=== PATIENT | female | born 1975 | race Caucasian/White ===

== ENCOUNTER → 2016-11-02 | Outpatient (CLI) | payer MEDICAID ==
[~2016-11-02] MED LIST: APAP/HYDROCODON1 TA9 PO; PERCOCET1 TAB PO
[2016-11-04 04:38] LABS: HIV Screen 4th Generation wRfx Non Reactive (Non Reactive)
== END ==
LOC: LAB 10:05
PROVIDERS: Nurse Practitioner Obstetrics & Gynecology
DX: Z34.80 Encounter for supervision of other normal pregnancy, unspecified trimester (principal)
CPT/HCPCS: G0432

== ENCOUNTER 2017-08-08 10:35 | Emergency (ER) | payer MEDICAID ==
[~2017-08-08] VITALS: Ht 165.1 cm; Wt 80.7 kg
[2017-08-08 10:55] LABS: URINE BILIRUBIN - DIPSTICK NEGATIVE (NEG); URINE BLOOD TRACE (NEG); UTC URINE PREGNANCY POSITIVE (NEG)
[2017-08-08 11:13] VITALS: BP 129/81
[2017-08-08] MEDS ORDERED: MACROBID 100MG100 M1 PO (11:13)
--- NOTE | 2017-08-08 11:13 | [facility] Report ---
History of Present Issue Date/Time Seen by Provider 08/08/17 1050 Visit Reason Pt arrived:Walked Presenting Problem:PT C/O LOWER BACK PAIN AND IS CONCERNED SHE HAS A UTI. PT REPORTS PAIN X2 WEEKS Location if Accident: Onset of symptoms date/time:/ or onset unknown for:MEDICAL HX UNKNOWN Have you (or family members/close friends) recently traveled outside the [place]? N If Yes, where/when: Have you had exposure to infectious disease within the past month? TB? Other? Specify: Patient presents with c/o low back pain for approximately 2 weeks and dysuria that started 1-2 days ago. Patient states that she had a positive home test yesterday. Denies fever/chills. Hx includes previous UTIs and a miscarriage 12/2016. Patient states she has been trying to conceive and is excited about the . Denies taking medication for symptoms. Patient states LMP was last month. Has not scheduled an appointment with [facility] [employer]EC[employer] due to office being closed. Source patient Exam Limitations no limitations ALLERGIES Coded Allergies: Penicillins (SEVERE RASH 11/07/16) tetanus and diphtheria toxoids (SWELLING/RASH 11/07/16) Home Medications Active Scripts OXYCODONE HCL/ACETAMINOPHEN (Percocet 5-325 MG Tablet) 1 TAB PO Q6HP PRN pain #10 TAB Prov: 11/10/16 Reported Medications HYDROCODONE/ACETAMINOPHEN (Hydrocodon-Acetaminoph 7.5-325) 1 TAB PO PRN PRN POST OP PAIN #20 History Medical History General CAD? No Angina: No OK: No Hypertension? No Hyperlipidemia? No CHF? No DVT? No PE? No COPD? No Asthma? No Anemia? No GERD? No Gastric ulcers? No GI Bleed? No Hernia? No Thyroid Problems? No Hypothyroidism? No CVA? No Seizures? No Diabetes? No Renal Insuffiency? No UTI? Yes Stones? No BPH? No GB Disease: Yes Nephritic Syndrome? No Asplenia? No Hepatitis? No Sickle Cell Disease? No Arthritis? No Migraines? No Cataracts? No Glaucoma? No MRSA? No HIV? No TB? No Anxiety? No Depression? No Cancer? No More? No Immunization HX DT/Tetanus 1-4 Years Ago Flu Refused Pneumonia Never Had Surgical Hx Previous Surgery?Y GALLBLADDER LEEP D & C Family History Family HX Diabetes No CAD Yes Hypertension Yes Hyperlipidemia Yes Cancer Yes TB No Social History Smoking Hx Smoker: Never Smoker Tobacco: No Alcohol Alcohol: No Review of Systems All Other Systems Reviewed and Negative Constitutional denies chills, denies fever, denies malaise Respiratory denies cough, denies shortness of breath, denies wheezing Cardiovascular denies chest pain, denies edema, denies palpitations Gastrointestinal denies abdominal pain, denies diarrhea, denies nausea, denies vomiting, other ( bladder fullness and bloating) Genitourinary dysuria, hesitancy, . denies: discharge, abnormal vaginal bleeding, hematuria. Musculoskeletal back pain (low back) Psychiatric/Neurological denies no symptoms reported Physical Exam Vital Signs Vital Signs Date Time Temp Pulse Resp B/P Pulse O2 O2 Flow FiO2 Ox Delivery Rate 08/08 1113 98.9 81 20 129/81 99 08/08 1046 98.9 81 20 129/81 99 General Appearance normal appearance, WD/WN, no apparent distress Respiratory Status Yes: chest symmetrical. No: respiratory distress. Lung Sounds bilateral: normal breath sounds. Cardiovascular normal exam, regular rate/rhythm, no peripheral edema, no murmur Gastrointestinal normal bowel sounds, soft, tenderness (suprapubic) Back normal inspection, no CVA tenderness, bowel/bladder continent, gait normal, low back slightly TTP with deep palpation Neurologic alert, normal exam, no motor/sensory deficits, oriented x 3 Mental status normal mood/affect Skin intact, normal color, warm/dry Medical Decision Making LABS/Meds/Orders Pt receiving controlled substance in ED? No Results/Orders Laboratory Tests 08/08/17 1048: Urine Color YELLOW, Urine Appearance CLEAR, Urine pH 6.0, Ur Specific [place] 1.015, Urine Protein NEGATIVE, Urine Ketones NEGATIVE, Urine Blood TRACE H, Urine Nitrate NEGATIVE, Urine Bilirubin NEGATIVE, Urine Urobilinogen 0.2, Ur Leukocyte Esterase NEGATIVE, Urine Glucose NEGATIVE, Urine Test POSITIVE Orders Procedure Date/time Status CULTURE, URINE 08/08 1058 Active [facility] URINE 08/08 1048 Complete [facility] URINE DIPSTICK 08/08 1048 Complete Departure Departure Time of Disposition 1101 Disposition DC Home or Self Care(routine) Clinical Impression Primary Impression: Dysuria in Qualifiers: Trimester: first trimester Qualified Code: O26.891 - Other specified related conditions, first trimester Condition STABLE Referrals James VAZQUEZ,Constantine Lang Patient Instructions DI for Dysuria -- Adult, DI for -- Discomforts and Remedies Additional Instructions Instucted patient regarding health including taking a vitamin , frequest rest periods, adequate nutrition and fluid intake. Patient has been advised to contact Dr. Bond's office today to schedule an appointment for and follow-up from visit today. Monitor signs and symptoms; if you become unable to urinate, begin to have vaginal discharge including spotting and bleeding report to ER for further evaluation. Urinc culture was collected and sent to the lab; you may anticipate results after approximately 72 hours. Patient verbalizes understanding. Discharge Counseling Counseled pt/family regarding diagnosis, test results, medications/RX, home care, follow up needs Prescriptions Current Visit Scripts Nitrofurantoin 100 MG PO BID #14 CAP take 1 capsule twice daily for 7 days at 6128
--- OUTSIDE RECORDS SUMMARY | 2017-08-09 19:19 | External Medical Summary Rpt | CCD ---
Author Author , PAYTON Organization PAYTON Address Unknown Phone [email or web address] Care Team Providers Care Insole Tacker Name Role Phone MELY HICKS Unavailable Unavailable ZACHERY MELY ZACHERY, MELY Unavailable Unavailable ZACHERY JESUS LEE Unavailable Unavailable SARAI TER, SARAI TER Unavailable Unavailable CASTELLANOS, CASTELLANOS Unavailable Unavailable CASTELLANOS TRINA, CASTELLANOS Unavailable Unavailable [facility] Unavailable Unavailable [facility] [place], [facility] THE BLUE FEEBACK, FEEBACK Unavailable Unavailable ANTON ALBERT, ANTON ALBERT Unavailable Unavailable [facility] Unavailable Unavailable [place], [facility] Unavailable Unavailable CENTER, [facility] Unavailable Unavailable INC, [facility] Unavailable Unavailable [facility], Unavailable Unavailable [facility] Unavailable Unavailable IMAGING [facility], [facility] MAI ZACHERY, MAI Unavailable Unavailable ZACHERY [facility] GRE, Unavailable Unavailable [facility], Unavailable Unavailable [facility] Unavailable [facility] Unavailable Unavailable [facility], Unavailable Unavailable PLL[facility], [facility] Unavailable Unavailable LAB, [facility] Unavailable Unavailable LAB, [facility] TEX DAN, Unavailable Unavailable TEX NICE JR JUMA, Unavailable Unavailable PICKPAULA DAN JUMA PICKPAULA DAN JUMA, Unavailable Unavailable PICKMIKEYIMER JUMA [facility] Un[facility] Un[facility], [facility] RENUSCH, RENUSCH Unavailable Unavailable [facility] # Unavailable Unavailable [id number], [facility] # [id number] [facility] Unavailable Unavailable DEPT [facility], [facility] Unavailable Unavailable OF [facility], [facility] [place] Purpose Continuity of Care Document - 12-14-2010 through 2016 Problems Code Diagnosis DOS Provider Status [id number] 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 RTN W/O ABNORMAL FIND M542 CERVICALGIA 11-10-2016 [facility] N939 ABNORMAL 11-10-2016 [facility] VAGINAL [facility] BLEEDING UNSPECIFIED R1030 LOWER 11-10-2016 [facility] PAIN PLLC UNSPECIFIED R938 ABNORMAL 11-10-2016 JESSICA FIND ON DX MEDICAL IMAGING OT IMAGING ASS SPEC BODY STRCT O021 MISSED 11-07-2016 [facility] O034 INCOMPLETE 11-07-2016 [facility] SPONTANEOUS ANESTH OF THE BLUE W/O COMPLICATIO N Z3480 ENC 11-02-2016 [facility]PER[facility]ION [facility] OT NORMAL INC PREG UNS TRIMESTER Z3201 ENCOUNTER 10-30-2016 [facility] FOR PHYSICIANS GROUP TEST RESULT POSITIVE J00 ACUTE 10-24-2016 [facility] NASOPHARYNG PHYSICIAN ITIS COMMON GROUP COLD Z3189 ENCOUNTER 10-10-2016 PUBLIC FOR OTHER HEALTH PROCREATIVE DHS/[facility] MANAGEMENT HEALTH [id number] CERV LOW 09-30-2016 [facility] RISK HUMAN PHYSICIANS PAPILLOMAVI GROUP JOE DNA TEST POS Z9189 OTHER 09-30-2016 [facility] SPECIFIED LLC PERSONAL RISK FACTORS NEC N760 ACUTE 11-28-2015 [facility] VAGINITIS PHYSICIANS GROUP Z7251 HIGH RISK 11-28-2015 [facility] HETEROSEXUA PHYSICIANS L BEHAVIOR GROUP Z729 PROBLEM 11-28-2015 [facility] RELATED TO [facility] LIFESTYLE INC UNSPECIFIED Q96203 ATYP SQ 08-29-2015 [facility] CELLS UNDET PHYSICIANS GROUP SIGNIFICANC E CYTOL SMER CERV V2509 OT GENERAL 03-30-2015 [facility] PHYSICIANS CNSL&ADVICE GROUP CONTRACEPT MANAGEMENT V692 PROBLEMS 03-30-2015 [facility] RELATED TO PHYSICIANS HIGH-RISK GROUP SEXUAL BEHAVIOR 15035 PAP SMER 03-02-2015 [facility] CERV W/LW LLC GRADE SQUAMOUS INTRAEPITH LES 6253 DYSMENORRHE 12-16-2014 [facility] A [facility] 26581 OTHER 12-16-2014 [facility] FATIGUE INC 54424 PAP SMER 08-18-2014 [facility] CERV [facility] W/ATYPICAL CLINIC OF SQUAMOUS [place] CELLS UNDET 41928 OTH 08-18-2014 [facility] ABNORMAL HEALTH [facility] OF U SMEAR [place] CERVIX&CERV HPV V7231 ROUTINE 08-18-2014 [facility] GYNECOLOGIC LLC AL EXAMINATION 1105 DERMATOPHYT 12-10-2013 MELY BINGHAM OSIS OF THE BODY 3829 UNSPECIFIED 12-10-2013 MELY B[facility] OTITIS MEDIA 60495 UNS 11-02-2013 MELY BINGHAM GASTRITIS&G ASTRODUODIT IS W/O MENTION HEMORR 0794 HUMAN 09-06-2013 PATHOLOGY & PAPILLOMA CYTOLOGY VIRUS IN LAB CCE & UNS SITE 28108 MODERATE 09-06-2013 [facility] DYSPLASIA HEALTH OF [facility] [place] 1121 CANDIDIASIS 08-17-2013 PATHOLOGY & OF VULVA CYTOLOGY AND VAGINA LAB 6160 CERVICITIS 08-17-2013 PATHOLOGY & AND CYTOLOGY ENDOCERVICI LAB TIS V2549 SURVEILLANC 03-16-2013 [facility] E OTH PREV HEALTH PRSC CLINIC OF CONTRACEPT [place] METHOD 34828 MILD 02-03-2013 PATHOLOGY & DYSPLASIA CYTOLOGY OF CERVIX LAB 31822 CERV HIGH 12-29-2012 PATHOLOGY & RISK HUMAN CYTOLOGY PAPILLOMAVI LAB JOE DNA TEST POS V2689 OTHER 07-31-2012 [facility] HE[facility] PROCRE[facility]IVE CENTER MANAGEMENT 96027 OTHER 06-11-2012 [facility] V[facility]UAL GRE DISTORTIONS AND ENTOPTIC PHENOMENA 2662 OTHER 05-18-2012 [facility] B-COMPLEX HEALTH DEFICIENCIE CENTER S 70753 TRICHOMONAL 12-03-2011 [facility] VULVOVAGINI CENTER TIS V1589 OTH SPEC 10-15-2011 P[facility] PERS HX JR JUMA PRESENTING [facility] OTH V069 NEED PROPH 05-13-2011 [facility] VACCINATION HEALTH W/UNSPEC CENTER COMB VACCINE Medications Na ND Rx Da Fi Fi Am Da Di Ph RX Ph St me C No te ll ll ou ys ag ar # ys at rm s nt no ma ic us Or Da si cy ia de te s n re d OX 00 01 02 10 3 00 WA Ac YC 40 -1 -1 .0 00 L- ti OD 60 6- 7- 00 02 MA ve ON 51 20 20 23 RT E- 20 17 17 87 AC 1 00 PH ET AR AM MA IN CY OP HE #5 N 91 5- 32 5 HY 13 01 02 [address] 10 -1 -0 .0 00 IN ti OC 70 2- 3- 00 00 IC ve OD 02 20 20 41 ON 00 17 17 88 PH -A 5 96 AR CE MA TA CY MT NO PH 7. 5- 32 5 00 08 08 0 15 3 WA 44 RU Ac 40 -1 -1 .0 L- 95 SH ti 60 0- 0- 00 MA 51 ve 35 20 20 RT 1 NE 70 11 11 IL 5 PH C AR MA CY # 10 05 91 00 05 05 0 12 3 WA 44 RU Ac 40 -0 -0 .0 L- 93 SH ti 60 6- 6- 00 MA 54 ve 35 20 20 RT 0 NE 70 11 11 IL 5 PH C AR MA CY # 10 05 91 CE 68 05 05 0 40 10 WA 71 RU Ac PH 18 -0 -0 .0 L- 17 SH ti AL 00 3- 3- 00 MA 70 ve EX 12 20 20 RT 3 NE IN 10 11 11 IL 1 PH C 25 AR 0 MA MG CY # CA PS 10 UL 05 E 91 Results Labs Lab Lab Date Result Refere Interp Status Commen Order Detail nces retati t Range on CHLAMYDIA AND GONORRHEA TESTING (12-29-2012 14:00) Chlamyd NEGATIV complet ia 013 E ed trachom 14:00 atis rRNA [Presen ce] in Unspeci fied specime n by Probe & target amplifi cation method Neisser NEGATIV complet ia 013 E ed gonorrh 14:00 oeae rRNA [Presen ce] in Unspeci fied specime n by Probe & target amplifi cation method CHLAMYDIA AND GONORRHEA TESTING (12-29-2012 14:00) COLLECT NA complet OR 013 ed 14:00 ETHNICI WHITE, complet TY 013 NON-HIS ed 14:00 PANIC KIT 06-26-13 complet EXPIRAT 013 ed ION 14:00 DATE SYMPTOM NO complet S 013 ed 14:00 REASON REVISIT complet FOR 013 /ANNUAL ed REQUEST 14:00 FAMILY PLANNIN G VISIT SPECIME URINE complet N 013 ed SOURCE 14:00 PREGNAN NO complet T 013 ed 14:00 CHART NA complet NUMBER 013 ed 14:00 Chlamyd Pending complet ia 013 ed trachom 14:00 atis rRNA [Presen ce] in Unspeci fied specime n by Probe & target amplifi cation method Neisser Pending complet ia 013 ed gonorrh 14:00 oeae rRNA [Presen ce] in Unspeci fied specime n by Probe & target amplifi cation method CHLAMYDIA AND GONORRHEA TESTING (10-15-2011 14:34) Chlamyd NEGATIV complet ia 011 E ed trachom 14:34 atis rRNA [Presen ce] in Unspeci fied specime n by Probe & target amplifi cation method Neisser NEGATIV complet ia 011 E ed gonorrh 14:34 oeae rRNA [Presen ce] in Unspeci fied specime n by Probe & target amplifi cation method CHLAMYDIA AND GONORRHEA TESTING (10-15-2011 14:34) COLLECT NA complet OR 011 ed 14:34 ETHNICI WHITE, complet TY 011 NON-HIS ed 14:34 PANIC KIT complet EXPIRAT 011 2 ed ION 14:34 DATE SYMPTOM NO complet S 011 ed 14:34 REASON REVISIT complet FOR 011 /ANNUAL ed REQUEST 14:34 FAMILY PLANNIN G VISIT SPECIME FEMALE complet N 011 ENDOCER ed SOURCE 14:34 VICAL PREGNAN NO complet T 011 ed 14:34 CHART NA complet NUMBER 011 ed 14:34 Chlamyd Pending complet ia 011 ed trachom 14:34 atis rRNA [Presen ce] in Unspeci fied specime n by Probe & target amplifi cation method Neisser Pending complet ia 011 ed gonorrh 14:34 oeae rRNA [Presen ce] in Unspeci fied specime n by Probe & target amplifi cation method Procedures Procedure DOS Code Location Performer Comment CYTP C/V 62936 [facility] PICKLESIM AUTO THIN 7 LLC ER [place] S[place] [address] [facility] TRANSVAGI 7 [facility] NAL INC INC COMPREHEN 59992 [facility] SIVE 7 [facility] METABOLIC INC INC PANEL THERAPEUT 75607 [facility] IC 7 [facility] INJECTION INC INC IV PUSH EACH NEW DRUG THER 21818 [facility] PROPH/DX 7 [facility] NJX IV INC INC PUSH SINGLE/1S T SBST/DRUG URNLS DIP 48195 [facility] STICK/TAB INC INC LET REAGENT AUTO MICROSCOP Y BLOOD 34864 [facility] COUNT 7 [facility] COMPLETE INC INC AUTO&AUTO DIFRNTL WBC TX MISSED 07981 [facility] CASTELLANOS 7 PHYSICIAN FIRST S GROUP TRIMESTER SURGICAL BASIC 67605 [facility] METABOLIC 7 [facility] PANEL INC INC CALCIUM TOTAL ANESTHESI 18349 [facility] FEEBACK A 7 ANESTH INCOMPLET OF THE E/MISSED BLUE US PREG 01199 [facility] CASTELLANOS UTERUS 7 PHYSICIAN REAL TIME S GROUP F/U TRNSABDL PER FETUS COLLECTIO 34685 [facility] N VENOUS 7 [facility] BLOOD INC INC VENIPUNCT URE INF AGT G0432 [facility] AB DETECT 7 [facility] EIA TECH INC INC HIV-1&/HI V-2 SCR OBSTETRIC 76725 [facility] PANEL 7 [facility] INC INC DRUG TEST 42345 [facility] PRSMV 7 PHYSICIAN QUAL DIR S GROUP OPTICAL OBS PER DAY COLLECTIO 99390 [facility] N VENOUS 7 [facility] BLOOD INC INC VENIPUNCT URE URINE 21206 [facility] CASTELLANOS 7 PHYSICIAN TEST S GROUP VISUAL COLOR CMPRSN METHS URINE 51225 [facility] TEST DHS/CO TH DEPT VISUAL HEALTH JERAD COLOR CMPRSN METHS COLPOSCOP 09770 [facility] CASTELLANOS Y CERVIX 6 PHYSICIAN ENDOCERVI S GROUP ARLINE CURETTAGE CYTP C/V 47076 [facility] PICKLESIM AUTO THIN 6 LLC ER JR JUMA LYR PREPJ SCR MNL RESCR PHYS CYTP C/V 62731 [facility], P[facility]IM AUTO THIN 6 LLC ER JR JUMA LYR PREPJ SCR MNL RESCR PHYS COLPOSCOP 20609 [facility] CASTELLANOS Y CERVIX 6 PHYSICIAN TRINA ENDOCERVI S GROUP ARLINE CURETTAGE SMR PRIM 73990 [facility] CASTELLANOS SRC WET 6 PHYSICIAN TRINA MOUNT S GROUP NFCT AGT IADNA 41391 [facility] CHLAMYDIA 6 [facility] INC INC TRACHOMAT IS AMPLIFIED PROBE TQ IADNA 66127 [facility] NEISSERIA 6 [facility] INC INC GONORRHOE AE AMPLIFIED PROBE TQ CYTP C/V 02788 [facility], [facility] AUTO THIN 5 LLC ER JR JUMA LYR PREPJ SCR MNL RESCR PHYS COLPOSCOP 06639 [facility] CA[facility]OS Y CERVIX 5 PHYSICIAN ENDOCERVI S GROUP ARLINE CURETTAGE IADNA 19503 [facility] CHLAMYDIA 5 [facility] INC INC TRACHOMAT IS AMPLIFIED PROBE TQ URINE 52137 [facility] CASTELLANOS 5 PHYSICIAN TEST S GROUP VISUAL COLOR CMPRSN METHS IADNA 89981 [facility] NEISSERIA 5 [facility] INC INC GONORRHOE AE AMPLIFIED PROBE TQ COLLECTIO 04964 [facility] N VENOUS 5 [facility] BLOOD INC INC VENIPUNCT URE ANTIBODY 96473 [facility] HERPES 5 [facility] SMPLX INC INC TYPE 1 ANTIBODY 21051 [facility] VIRUS NOT 5 [facility] INC INC ELSEWHERE SPECIFIFE D INF AGT G0432 [facility] AB DETECT 5 [facility] EIA TECH INC INC HIV-1&/HI V-2 SCR CYTP C/V 51380 [facility], [facility] AUTO THIN 5 LLC LLC LYR PREPJ SCR MNL RESCR PHYS COMPREHEN 92491 [facility] SIVE 5 [facility] METABOLIC INC INC PANEL COLLECTIO 25221 [facility] N VENOUS 5 [facility] BLOOD INC INC VENIPUNCT URE GONADOTRO 82913 [facility] PIN 5 [facility] CHORIONIC INC INC QUALITATI VE BLOOD 05762 [facility] COUNT 5 [facility] COMPLETE INC INC AUTO&[place] [address] [facility] THYROID 5 [facility] STIMULATI INC INC NG HORMONE TSH 25 86342 [facility] HYDROXY 5 [facility] INCLUDES INC INC FRACTIONS IF PERFORMED CYANOCOBA 98023 [facility] JUSTIN 5 [facility] VITAMIN INC INC B-12 GONADOTRO 75897 [facility] PIN 5 [facility] LUTEINIZI INC INC NG HORMONE GONADOTRO 57282 [facility] PIN 5 [facility] FOLLICLE INC INC STIMULATI NG HORMONE COLPOSCOP 24819 [facility] Y CERVIX 4 HEALTH [facility] ENDOCERVI [facility] OF [place] [place] CURETTAGE CYTP C/V 74085 [facility], [facility], AUTO THIN 4 LLC LLC LYR PREPJ SCR MNL RESCR PHYS CYTP 84684 [facility], MAI CERVICAL/ 4 LLC ZACHERY VAGINAL REQ INTERP PHYSICIAN CYTP C/V 72240 [facility], MAI AUTO THIN 4 LLC ZACHERY LYR PREPJ SCR MNL RESCR PHYS COLPOSCOP 75250 [facility] CA[facility] Y CERVIX 4 TRINA TRINA ENDOCERVI ARLINE CURETTAGE URINE 05573 [facility] 3 [facility]ALTH [facility]INA TEST CLINIC OF VISUAL [place] COLOR CMPRSN METHS COLPOSCOP 27977 [facility] Y CERVIX 3 HEALTH TRINA VAG ELTRD CLINIC [place] [address] PATHOLOGY MAI SURG 3 & ZACHERY PATHOLOGY CYTOLOGY LAB GROSS&ALBERT ROSCOPIC EXAM COLPOSCOP 61815 [facility] Y CERVIX 3 HEALTH TRINA BX CERVIX CLINIC OF & [place] ENDOCRV CURRETAGE CYTP C/V 34574 PATHOLOGY PICKLESIM AUTO THIN 3 & ER JR JUMA LYR CYTOLOGY PREPJ SCR LAB MNL RESCR PHYS CYTP 69385 PATHOLOGY PICKLESIM CERVICAL/ 3 & ER JR JUMA VAGINAL CYTOLOGY [place] [address] PATHOLOGY PICKLESIM SURG 3 & ER JR JUMA PATHOLOGY CYTOLOGY LAB GROSS&[place] [address] PATHOLOGY ANTON ALBERT SURG 3 & PATHOLOGY CYTOLOGY LAB GROSS&ALBERT ROSCOPIC EXAM COLPOSCOP 08067 [facility] Y CERVIX 3 HEALTH TRINA BX CERVIX CLINIC OF & [place] ENDOCRV CURRETAGE IADNA [address] PAPILLOMA 3 & VIRUS CYTOLOGY HUMAN LAB AMPLIFIED PROBE TQ CYTP [address] CERVICAL/ 3 & VAGINAL CYTOLOGY REQ LAB INTERP PHYSICIAN CYTP [address] CERV/VAG 3 & AUTO THIN CYTOLOGY LAYER LAB PREP MNL SCREEN INJ J1055 [facility] HERRON MDRXYPRGE 2 [facility] ACTAT CNTRACPT USE 150 MG INJ J1055 LOLY LOLY MDRXYPRGE 2 [facility] ACTAT CNTRACPT USE 150 MG INJ J1055 LOLY LOLY MDRXYPRGE 2 [facility] ACTAT CNTRACPT USE 150 MG INJ J1055 LOLY LOLY MDRXYPRGE 2 [facility] ACTAT CNTRACPT USE 150 MG SMR PRIM 62767 LOLY LOLY SRC WET 2 [facility] NFCT AGT PH BODY 48076 LOLYBORIS SALC[facility] FLUID NOT 2 [facility] ELSEWHERE SPECIFIED AMINES 75086 [facility] LOLY VAGINAL 2 [facility] QUALITATI VE IADNA 27505 [facility] NEISSERIA 1 [facility] GONORRHOE AE AMPLIFIED PROBE TQ INJ J1055 [facility] MDRXYPRGE [address] [facility] ACTAT CNTRACPT USE 150 MG IADNA 45392 [facility] CHLAMYDIA 1 [facility] TRACHOMAT IS AMPLIFIED PROBE TQ CYTP 40252 PICKLESIM PATHOLOGY CERV/VAG 1 ER JR JUMA & AUTO THIN CYTOLOGY LAYER LAB PREP MNL SCREEN INJ J1055 LOLY LOLY MDRXYPRGE [address] [facility] ACTAT CNTRACPT USE 150 MG INJ J1055 [facility] MDRXYPRGE 1 [facility] ACTAT CNTRACPT USE 150 MG INJ J1055 LOLY SACLIDO MDRXYPRGE 1 [facility] ACTAT CNTRACPT USE 150 MG INJ J1055 [facility] MDRXYPRGE 1 [facility] ACTAT CNTRACPT USE 150 MG Encounters Encounter Start End Date Code Location Performer Type Date [facility]Y - 7 7 [facility] OUTPATIEN INC EMERGENCY 20665 [facility] DEPT 7 7 PHYSICIAN VISIT S, PLLC HIGH SEVERITY& THREAT FUNJ EMERGENCY 35985 LOLY 7 7 [facility] DEPARTMEN INC T VISIT MODERATE SEVERITY [facility] LOLY - 7 7 [facility] OUTPATIEN INC [facility] LOLY - 7 7 [facility] OUTPATIEN INC T OFFICE 07013 [facility] OUTPATIEN 7 7 PHYSICIAN T VISIT S GROUP 25 MINUTES [facility] LOLY - 7 7 [facility] OUTPATIEN INC T OFFICE 83656 [facility] JESUS OUTPATIEN 6 6 PHYSICIAN T VISIT GROUP 15 MINUTES OFFICE 59820 [facility] OUTPATIEN 6 6 HEALTH DISTRICT T 20 DHS/CO TH DEPT MINUTES [facility] LOLY - 6 6 MEM [facility] OUTPATIEN INC T OFFICE 24550 [facility] OUTPATIEN 6 6 PHYSICIAN TRINA T VISIT S GROUP 15 MINUTES HOSPITAL LOLY - 5 5 [facility] OUTPATIEN INC T OFFICE 23832 [facility] OUTPATIEN 5 5 PHYSICIAN T VISIT S GROUP 15 MINUTES [facility] LOLY - 5 5 [facility] OUTPATIEN INC T OFFICE 78636 MELY BOONE OUTPATIEN 4 4 ZACHERY ZACHERY T VISIT 15 MINUTES OFFICE 28847 MELY BOONE OUTPATIEN 4 4 ZACHERY ZACHERY T VISIT 15 MINUTES OFFICE 27937 [facility] 3 3 HEALTH [facility] T VISIT 5 CLINIC OF MINUTES KE[place] OFFICE 02900 [facility] CONSULTAT 3 3 [facility]ALTH [facility] ION [facility] KELL PATIENT 40 MIN OFFICE 26416 [facility] OUTPATIEN 2 2 [facility]ENTER 10 MINUTES OFFICE 06901 EFRAÍN KENNY OUTPATIEN 2 2 GRE GRE T [place] 45 MINUTES OFFICE 69158 [facility] OUTPATIEN 2 2 [facility] T VISIT CENTER CENTER 10 MINUTES OFFICE 97219 [facility] HERRON OUTPATIEN 2 2 [facility] 10 MINUTES OFFICE 36661 [facility] OUTPATIEN 2 2 [facility]ENTER 10 MINUTES OFFICE 96840 [facility] OUTPATIEN 2 2 [facility]ENTER 25 MINUTES PERIODIC 84974 [facility] PREVENTIV 1 1 DE [employer] HEALTH E MED EST CENTER CENTER PATIENT 18-39 YRS OFFICE 03686 LOLY LOLY OUTPATIEN 1 1 [facility] 15 MINUTES OFFICE 41165 [facility] HERRON OUTPATIEN 1 1 [facility] 10 MINUTES OFFICE 52816 LOLY LOLY OUTPATIEN 1 1 [facility] HE[facility] T VISIT CENTER CENTER 15 MINUTES OFFICE 49060 [facility] HERRON OUTPATIEN 1 1 DE [facility] HE[facility] T VISIT CENTER CENTER 10 MINUTES
--- OUTSIDE RECORDS SUMMARY | 2017-08-09 19:19 | External Medical Summary Rpt | CCD ---
Author Author , [facility] Organization [facility] Address Unknown Phone Care Team Providers Care Segmental Wall Installer Name Role Phone MELY HICKS Unavailable Unavailable ZACHERY MELY ZACHERY, MELY Unavailable Unavailable ZACHERY JESUS LEE Unavailable Unavailable SARAI TER, SARAI TER Unavailable Unavailable CASTELLANOS, CASTELLANOS Unavailable Unavailable CASTELLANOS TRINA, CASTELLANOS Unavailable Unavailable [facility] Unavailable Unavailable [facility] THE BLUE FEEBACK, FEEBACK Unavailable Unavailable ANTON ALBERT, ANTON ALBERT Unavailable Unavailable [facility] Unavailable Unavailable [place], [facility] Unavailable Unavailable [facility], [facility] Unavailable Unavailable [facility], [facility], [facility]available [facility]available [facility], Unavailable Unavailable [facility] Unavailable Unavailable IM[facility]ING [facility], [facility] MAI ZACHERY, MAI [...] Unavailable Unavailable [facility] # Unavailable Unavailable [id number], [facility] # [id number] [facility] Unavailable Unavailable DEPT [facility] Unavailable Unavailable OF [facility], [facility] [place] Purpose Continuity of Care Document - 12-14-2010 through 2016 Problems Code Diagnosis DOS Provider Status [id number] ENCOUNTER 03-31-2017 [facility], 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 O034 INCOMPLETE 11-07-2016 [facility] SPONTANEOUS ANESTH OF THE BLUE W/O COMPLICATIO N Z3480 ENC 11-02-2016 [facility] OT NORMAL INC PREG UNS TRIMESTER Z3201 ENCOUNTER 10-30-[address] [facility] FOR PHYSICIANS GROUP TEST RESULT POSITIVE J00 ACUTE 10-24-[address] [facility] NASOPHARYNG PHYSICIAN ITIS COMMON GROUP COLD Z3189 ENCOUNTER 10-10-2016 PUBLIC FOR OTHER HEALTH PROCREATIVE DHS/CO MANAGEMENT HEALTH [id number] CERV LOW 09-30-[address] [facility] RISK HUMAN PHYSICIANS PAPILLOMAVI GROUP JOE DNA TEST POS Z9189 OTHER 09-30-2016 [facility], SPECIFIED LLC PERSONAL RISK FACTORS NEC N760 ACUTE 11-28-[address] [facility] VAGINITIS PHYSICIANS GROUP Z7251 HIGH RISK 11-28-[address] [facility] HETEROSEXUA PHYSICIANS L BEHAVIOR GROUP Z729 PROBLEM 11-28-2015 [facility] RELATED TO [facility] LIFESTYLE INC UNSPECIFIED [id number] ATYP SQ 08-29-[address] [facility] CELLS UNDET PHYSICIANS GROUP SIGNIFICANC E CYTOL SMER CERV V2509 OT GENERAL 03-30-[address] [facility] PHYSICIANS CNSL&ADVICE GROUP CONTRACEPT MANAGEMENT V692 PROBLEMS 03-30-[address] [facility] RELATED TO PHYSICIANS HIGH-RISK GROUP SEXUAL BEHAVIOR 08767 PAP SMER 03-02-2015 [facility], CERV W/LW LLC GRADE SQUAMOUS INTRAEPITH LES 6253 DYSMENORRHE 12-16-2014 [facility] 64402 OTHER 12-16-2014 [facility] FATIGUE INC 89078 PAP SMER 08-18-2014 [facility] W/ATYPICAL CLINIC OF SQUAMOUS [place] CELLS UNDET 07993 OTH 08-18-2014 [facility]NORMAL [facility] U SMEAR [place] CERVIX&CERV HPV V7231 ROUTINE 08-18-2014 [facility], GYNECOLOGIC LLC AL EXAMINATION 1105 DERMATOPHYT 12-10-2013 MELY BINGHAM OSIS OF THE BODY 3829 UNSPECIFIED 12-10-2013 MELY BINGHAM OTITIS MEDIA 07380 UNS 11-02-2013 MELY BINGHAM GASTRITIS&G ASTRODUODIT IS W/O MENTION HEMORR 0794 HUMAN 09-06-2013 PATHOLOGY & PAPILLOMA CYTOLOGY VIRUS IN LAB CCE & UNS SITE 85804 MODERATE 09-06-2013 [facility] DYSPLASIA [facility] OF [facility] [place] 1121 CANDIDIASIS 08-17-2013 PATHOLOGY & OF VULVA CYTOLOGY AND VAGINA LAB 6160 CERVICITIS 08-17-2013 PATHOLOGY & AND CYTOLOGY ENDOCERVICI LAB TIS V2549 SURVEILLANC 03-16-2013 [facility] E OTH PREV HEALTH PRSC CLINIC OF CONTRACEPT [place] METHOD 92429 MILD 02-03-2013 PATHOLOGY & DYSPLASIA CYTOLOGY OF CERVIX LAB 37259 CERV HIGH 12-29-2012 PATHOLOGY & RISK HUMAN CYTOLOGY PAPILLOMAVI LAB JOE DNA TEST POS V2689 OTHER 07-31-2012 [facility] MANAGEMENT 72985 OTHER 06-11-2012 [place] VISUAL GRE DISTORTIONS AND ENTOPTIC PHENOMENA 2662 OTHER 05-18-2012 [facility] B-COMPLEX HEALTH DEFICIENCIE CENTER S 70856 TRICHOMONAL 12-03-2011 [facility] VULVOVAGINI CENTER TIS V1589 OTH SPEC 10-15-2011 [facility] HX JR JUMA PRESENTING [facility] OTH V069 NEED PROPH 05-13-2011 [facility] VACCINATION HEALTH W/UNSPEC CENTER COMB VACCINE [...] 5 [address] MA TA CY DC NO PH 7. 5- 32 5 00 [...] DOS Code Location Performer Comment CYTP C/V 48121 [facility], PICKLESIM AUTO THIN 7 LLC ER [place] S[place] [address] [facility] TRANSVAGI 7 [facility] NAL INC INC COMPREHEN 51421 [facility] SIVE 7 [facility] METABOLIC INC INC PANEL THERAPEUT 35915 [facility] IC 7 [facility] INJECTION INC INC IV PUSH EACH NEW DRUG THER 18397 [facility] PROPH/DX 7 [facility] NJX IV INC INC PUSH SINGLE/1S T SBST/DRUG URNLS DIP 67553 [facility] 7 [facility] STICK/TAB INC INC LET REAGENT AUTO MICROSCOP Y BLOOD 30403 [facility] COUNT 7 [facility] COMPLETE INC INC AUTO&AUTO DIFRNTL WBC [place] MISSED [address] [facility] CASTELLANOS 7 PHYSICIAN FIRST S GROUP TRIMESTER SURGICAL BASIC 90421 [facility] METABOLIC 7 [facility] PANEL INC INC CALCIUM TOTAL ANESTHESI 34666 [facility] FEEBACK A 7 ANESTH INCOMPLET OF THE E/MISSED BLUE US PREG [address] [facility] CASTELLANOS UTERUS 7 PHYSICIAN REAL TIME S GROUP F/U TRNSABDL PER FETUS COLLECTIO 28938 [facility] N VENOUS 7 [facility] BLOOD INC INC VENIPUNCT URE INF AGT G0432 [facility] AB DETECT 7 [facility] EIA TECH INC INC HIV-1&/HI V-2 SCR OBSTETRIC 86926 [facility] PANEL 7 [facility] INC INC DRUG TEST [address] [facility] CASTELLANOS PRSMV 7 PHYSICIAN QUAL DIR S GROUP OPTICAL OBS PER DAY COLLECTIO 14861 [facility] N VENOUS 7 [facility] BLOOD INC INC VENIPUNCT URE URINE [address] [facility] CASTELLANOS 7 PHYSICIAN TEST S GROUP VISUAL COLOR CMPRSN METHS URINE 60853 [facility] TEST DHS/CO TH DEPT VISUAL HEALTH JERAD COLOR CMPRSN METHS COLPOSCOP [address] [facility] CASTELLANOS Y CERVIX 6 PHYSICIAN ENDOCERVI S GROUP ARLINE CURETTAGE CYTP C/V 40092 [facility], PICKLESIM AUTO THIN 6 LLC ER JR JUMA LYR PREPJ SCR MNL RESCR PHYS CYTP C/V 50033 [facility], PICKLESIM AUTO THIN 6 LLC ER JR JUMA LYR PREPJ SCR MNL RESCR PHYS COLPOSCOP [address] [facility] CASTELLANOS Y CERVIX 6 PHYSICIAN TRINA ENDOCERVI S GROUP ARLINE CURETTAGE SMR PRIM [address] [facility] CASTELLANOS SRC WET 6 PHYSICIAN TRINA MOUNT S GROUP NFCT AGT IADNA 86713 [facility] CHLAMYDIA 6 [facility] INC INC TRACHOMAT IS AMPLIFIED PROBE TQ IADNA 56389 [facility] NEISSERIA 6 [facility] INC INC GONORRHOE AE AMPLIFIED PROBE TQ CYTP C/V 12294 [facility], PICKLESIM AUTO THIN 5 LLC ER JR JUMA LYR PREPJ SCR MNL RESCR PHYS COLPOSCOP [address] [facility] CASTELLANOS Y CERVIX 5 PHYSICIAN ENDOCERVI S GROUP ARLINE CURETTAGE IADNA 16876 [facility] CHLAMYDIA 5 [facility] INC INC TRACHOMAT IS AMPLIFIED PROBE TQ URINE [address] [facility] CASTELLANOS 5 PHYSICIAN TEST S GROUP VISUAL COLOR CMPRSN METHS IADNA 43437 [facility] NEISSERIA 5 [facility] INC INC GONORRHOE AE AMPLIFIED PROBE TQ COLLECTIO 78069 [facility] N VENOUS 5 [facility] BLOOD INC INC VENIPUNCT URE ANTIBODY 32383 [facility] HERPES 5 [facility] SMPLX INC INC TYPE 1 ANTIBODY 89719 [facility] VIRUS NOT 5 [facility] INC INC ELSEWHERE SPECIFIFE D INF AGT G0432 [facility] AB DETECT 5 [facility] EIA TECH INC INC HIV-1&/HI V-2 SCR CYTP C/V 41266 [facility], [facility] AUTO THIN 5 LLC LLC LYR PREPJ SCR MNL RESCR PHYS COMPREHEN 88433 [facility] SIVE 5 [facility] METABOLIC INC INC PANEL COLLECTIO 86301 [facility] N VENOUS 5 [facility] BLOOD INC INC VENIPUNCT URE GONADOTRO 20948 [facility] PIN 5 [facility] CHORIONIC INC INC QUALITATI VE BLOOD 81457 [facility] COUNT 5 [facility] COMPLETE INC INC AUTO&[place] [address] [facility] THYROID 5 [facility] STIMULATI INC INC NG HORMONE TSH 25 70149 [facility] HYDROXY 5 [facility] INCLUDES INC INC FRACTIONS IF PERFORMED CYANOCOBA 62292 [facility] JUSTIN 5 [facility] VITAMIN INC INC B-12 GONADOTRO 50743 [facility] PIN 5 [facility] LUTEINIZI INC INC NG HORMONE GONADOTRO 06520 [facility] PIN 5 [facility] FOLLICLE INC INC STIMULATI NG HORMONE COLPOSCOP 18680 [facility] Y CERVIX 4 HEALTH TRINA ENDOCERVI CLINIC OF ARLINE [place] CURETTAGE CYTP C/V 73903 [facility], [facility] AUTO THIN 4 LLC LLC LYR PREPJ SCR MNL RESCR PHYS CYTP 48535 [facility], MAI CERVICAL/ 4 LLC ZACHERY VAGINAL REQ INTERP PHYSICIAN CYTP C/V 45692 [facility], MAI AUTO THIN 4 LLC ZACHERY LYR PREPJ SCR MNL RESCR PHYS COLPOSCOP 82263 [facility] CASTELLANOS Y CERVIX 4 TRINA TRINA ENDOCERVI ARLINE CURETTAGE URINE 22342 [facility] 3 [facility]ALTH [facility] TEST CLINIC OF VISUAL [place] COLOR CMPRSN METHS COLPOSCOP 45430 [facility] Y CERVIX 3 HEALTH TRINA VAG ELTRD CLINIC [place] [address] PATHOLOGY MAI SURG 3 & ZACHERY PATHOLOGY CYTOLOGY LAB GROSS&ALBERT ROSCOPIC EXAM COLPOSCOP 71798 [facility] Y CERVIX 3 HEALTH TRINA BX CERVIX CLIN[facility] OF & [place] ENDOCRV CURRETAGE CYTP C/V 24991 PATHOLOGY PICKLESIM AUTO THIN 3 & ER JR JUMA LYR CYTOLOGY PREPJ SCR LAB MNL RESCR PHYS CYTP 32326 PATHOLOGY PICKLESIM CERVICAL/ 3 & ER JR JUMA VAGINAL CYTOLOGY [place] [address] PATHOLOGY PICKLESIM SURG 3 & ER JR JUMA PATHOLOGY CYTOLOGY LAB GROSS&[place] [address] PATHOLOGY ANTON ALBERT SURG 3 & PATHOLOGY CYTOLOGY LAB GROSS&ALBERT ROSCOPIC EXAM COLPOSCOP 90996 [facility] Y CERVIX 3 HEALTH TRINA BX CERVIX CLINIC OF & [place] ENDOCRV CURRETAGE IADNA [address] PAPILLOMA 3 & VIRUS CYTOLOGY HUMAN LAB AMPLIFIED PROBE TQ CYTP [address] CERVICAL/ 3 & VAGINAL CYTOLOGY REQ LAB INTERP PHYSICIAN CYTP [address] CERV/VAG 3 & AUTO THIN CYTOLOGY LAYER LAB PREP MNL SCREEN INJ J1055 [facility] MDRXYPRGE 2 [facility] ACTAT CNTRACPT USE 150 MG INJ J1055 LOL[facility] LOLY MDRXYPRGE 2 [facility] ACTAT CNTRACPT USE 150 MG INJ J1055 LOLY LOLY MDRXYPRGE 2 [facility] ACTAT CNTRACPT USE 150 MG INJ J1055 LOLY LOLY MDRXYPRGE 2 [facility] ACTAT CNTRACPT USE 150 MG SMR PRIM 76133 [facility] LOLY SRC WET 2 [facility] NFCT AGT PH BODY 89518 LOLYBORIS [facility] FLUID NOT 2 [facility] ELSEWHERE SPECIFIED AMINES 65762 [facility] LOLY VAGINAL 2 [facility] CENTER QUALITATI VE IADNA 82382 [facility] NEISSERIA 1 [facility] GONORRHOE AE AMPLIFIED PROBE TQ INJ J1055 [facility] MDRXYPRGE 1 [facility] ACTAT CNTRACPT USE 150 MG IADNA 56200 [facility] CHLAMYDIA 1 [facility] CENTER TRACHOMAT IS AMPLIFIED PROBE TQ CYTP 89845 PICKLESIM PATHOLOGY CERV/VAG 1 ER JR JUMA & AUTO THIN CYTOLOGY LAYER LAB PREP MNL SCREEN INJ J1055 [facility] LOLY MDRXYPRGE 1 [facility] ACTAT CNTRACPT USE 150 MG INJ J1055 [facility] MDRXYPRGE 1 [facility] ACTAT CNTRACPT USE 150 MG INJ J1055 [facility] MDRXYPRGE 1 [facility] ACTAT CNTRACPT USE 150 MG INJ J1055 [facility] MDRXYPRGE 1 [facility] ACTAT CNTRACPT USE 150 MG Encounters Encounter Start End Date Code Location Performer Type Date [facility]Y - 7 7 [facility] OUTPATIEN INC EMERGENCY 47400 [facility] DEPT 7 7 PHYSICIAN VISIT S, PLLC HIGH SEVERITY& THREAT FUNJ EMERGENCY 39885 LOL[facility] 7 7 [facility] DEPARTMEN INC T VISIT MODERATE SEVERITY [facility] LOLY - 7 7 [facility] OUTPATIEN INC [facility] LOLY - 7 7 [facility] OUTPATIEN INC T OFFICE [address] [facility] OUTPATIEN 7 7 PHYSICIAN T VISIT S GROUP 25 MINUTES [facility] LOLY - 7 7 [facility] OUTPATIEN INC T OFFICE [address] [facility] JESUS OUTPATIEN 6 6 PHYSICIAN T VISIT GROUP 15 MINUTES OFFICE 73819 PUBLIC [facility] OUTPATIEN 6 6 HEALTH DISTRICT T 20 DHS/CO TH DEPT MINUTES [facility] LOLY - 6 6 [facility] OUTPATIEN INC T OFFICE [address] [facility] OUTPATIEN 6 6 PHYSICIAN TRINA T VISIT S GROUP 15 MINUTES [facility]OSPITAL LOLY - 5 5 [facility] OUTPATIEN INC T OFFICE [address] [facility] OUTPATIEN 5 5 PHYSICIAN T VISIT S GROUP 15 MINUTES [facility] LOLY - 5 5 [facility] OUTPATIEN INC T OFFICE 53662 MELY BOONE OUTPATIEN 4 4 ZACHERY ZACHERY T VISIT 15 MINUTES OFFICE 34579 MELY BOONE OUTPATIEN 4 4 ZACHERY ZACHERY T VISIT 15 MINUTES OFFICE 01834 [facility] 3 3 HEALTH [facility]INA T VISIT 5 CLINIC OF MINUTES [place] OFFICE 18025 [facility] CONSULTAT 3 3 [facility]ALTH [facility] PATIENT 40 MIN OFFICE 10256 [facility] OUTPATIEN 2 2 [facility] 10 MINUTES OFFICE 99154 [facility] OUTPATIEN 2 2 [facility] [place] 45 MINUTES OFFICE 07725 [facility] OUTPATIEN 2 2 [facility] 10 MINUTES OFFICE 13496 [facility] OUTPATIEN 2 2 [facility] 10 MINUTES OFFICE 53655 [facility] OUTPATIEN 2 2 [facility] 10 MINUTES OFFICE 22425 [facility] OUTPATIEN 2 2 [facility] 25 MINUTES PERIODIC 58334 [facility] PREVENTIV 1 1 [employer] HEALTH E MED EST CENTER CENTER PATIENT 18-39 YRS OFFICE 94341 [facility]Y OUTPATIEN 1 1 [facility] 15 MINUTES OFFICE 94543 [facility] OUTPATIEN 1 1 [facility] 10 MINUTES OFFICE 71764 [facility]Y OUTPATIEN 1 1 [facility] CENTER 15 MINUTES OFFICE 64889 [facility] OUTPATIEN 1 1 [facility] C[facility] 10 MINUTES
--- OUTSIDE RECORDS SUMMARY | 2017-08-09 19:21 | External Medical Summary Rpt ---
Author Author [employer], [employer] Organization [employer] Address Unknown Phone Unavailable Results CHLAMYDIA AND GONORRHEA TESTING Observa Value Referen Units Interpr Notes Date tion ce etation Range COLLECT NA No No No No Mar 5 OR informa informa informa informa 2013 tion in tion in tion in tion in 2:00 PM source source source source data data data data ETHNICI WHITE, No No No No Dec 5 TY NON-HIS informa informa informa informa 2013 PANIC tion in tion in tion in tion in 2:00 PM source source source source data data data data KIT 8-31-13 No No No No Mar 5 EXPIRAT informa informa informa informa 2013 ION tion in tion in tion in tion in 2:00 PM DATE source source source source data data data data SYMPTOM NO No No No No Mar 5 S informa informa informa informa 2013 tion in tion in tion in tion in 2:00 PM source source source source data data data data REASON REVISIT No No No No Dec 5 FOR /ANNUAL informa informa informa informa 2013 REQUEST FAMILY tion in tion in tion in tion in 2:00 PM source source source source PLANNIN data data data data G VISIT SPECIME URINE No No No No Dec 5 N informa informa informa informa 2013 SOURCE tion in tion in tion in tion in 2:00 PM source source source source data data data data PREGNAN NO No No No No Dec 5 T informa informa informa informa 2013 tion in tion in tion in tion in 2:00 PM source source source source data data data data CHART NA No No No No Mar 5 NUMBER informa informa informa informa 2013 tion in tion in tion in tion in 2:00 PM source source source source data data data data Chlamyd NEGATIV No No No NEGATIV Mar 5 ia E informa informa informa E 2013 trachom tion in tion in tion in RESULT= 2:00 PM atis source source source WITHIN rRNA data data data NORMAL [Presen ce] in LIMITSP Unspeci OSITIVE fied specime RESULT= n by Probe & ABNORMA target LEQUIVO ARLINE amplifi RESULT= cation method INDETER MINATEU NSATISF ACTORY RESULT= INVALID Neisser NEGATIV No No No NEGATIV Mar 5 ia E informa informa informa E 2013 gonorrh tion in tion in tion in RESULT= 2:00 PM oeae source source source WITHIN rRNA data data data NORMAL [Presen ce] in LIMITSP Unspeci OSITIVE fied specime RESULT= n by Probe & ABNORMA target LEQUIVO ARLINE amplifi RESULT= cation method INDETER MINATEU NSATISF ACTORY RESULT= INVALID THE APTIMA COMBO 2 ASSAY IS NOT INTENDE D FOR THE EVALUAT ION OF SUSPECT EDSEXUA L ABUSE OR FOR OTHER MEDICO- LEGAL INDICAT IONS. FOR THOSE PATIENT S FORWHOM A FALSE POSITIV E RESULT MAY HAVE ADVERSE PSYCHO- SOCIAL IMPACT, [facility] RET[facility] NG.\.br \This report contain s patient informa tion that must be protect ed in accorda nce with the Health Insuran ce Portabi lity and Account ability Act. CHLAMYDIA AND GONORRHEA TESTING Observa Value Referen Units Interpr Notes Date tion ce etation Range COLLECT NA No No No No Dec 5 OR informa informa informa informa 2013 tion in tion in tion in tion in 2:00 PM source source source source data data data data ETHNICI WHITE, No No No No Dec 29 TY NON-HIS informa informa informa informa 2013 PANIC tion in tion in tion in tion in 2:00 PM source source source source data data data data KIT 8-31-13 No No No No Dec 29 EXPIRAT informa informa informa informa 2013 ION tion in tion in tion in tion in 2:00 PM DATE source source source source data data data data SYMPTOM NO No No No No Dec 5 S informa informa informa informa 2013 tion in tion in tion in tion in 2:00 PM source source source source data data data data REASON REVISIT No No No No Dec 29 FOR /ANNUAL informa informa informa informa 2013 REQUEST FAMILY tion in tion in tion in tion in 2:00 PM source source source source PLANNIN data data data data G VISIT SPECIME URINE No No No No Dec 29 N informa informa informa informa 2013 SOURCE tion in tion in tion in tion in 2:00 PM source source source source data data data data PREGNAN NO No No No No Dec 29 T informa informa informa informa 2013 tion in tion in tion in tion in 2:00 PM source source source source data data data data CHART NA No No No No Dec 29 NUMBER informa informa informa informa 2013 tion in tion in tion in tion in 2:00 PM source source source source data data data data Chlamyd Pending No No No No Dec 29 ia informa informa informa informa 2013 trachom tion in tion in tion in tion in 2:00 PM atis source source source source rRNA data data data data [Presen ce] in Unspeci fied specime n by Probe & target amplifi cation method Neisser Pending No No No \.br\Dec 29 ia informa informa informa is 2013 gonorrh tion in tion in tion in report 2:00 PM oeae source source source contain rRNA data data data s [Presen patient ce] in Unspeci informa fied tion specime that n by must be Probe & target protect ed in amplifi accorda cation nce method with the Health Ins[employer] ce Portabi lity and Account ability Act. CHLAMYDIA AND GONORRHEA TESTING Observa Value Referen Units Interpr Notes Date tion ce etation Range COLLECT NA No No No No Oct 15 OR informa informa informa informa 2010 tion in tion in tion in tion in 2:34 PM source source source source data data data data ETHNICI WHITE, No No No No Oct 15 TY NON-HIS informa informa informa informa 2011 PANIC tion in tion in tion in tion in 2:34 PM source source source source data data data data KIT No No No No Oct 15 EXPIRAT 2 informa informa informa informa 2011 ION tion in tion in tion in tion in 2:34 PM DATE source source source source data data data data SYMPTOM NO No No No No Oct 15 S informa informa informa informa 2011 tion in tion in tion in tion in 2:34 PM source source source source data data data data REASON REVISIT No No No No Oct 15 FOR /ANNUAL informa informa informa informa 2011 REQUEST FAMILY tion in tion in tion in tion in 2:34 PM source source source source PLANNIN data data data data G VISIT SPECIME FEMALE No No No No Oct 15 N ENDOCER informa informa informa informa 2011 SOURCE VICAL tion in tion in tion in tion in 2:34 PM source source source source data data data data PREGNAN NO No No No No Oct 15 T informa informa informa informa 2011 tion in tion in tion in tion in 2:34 PM source source source source data data data data CHART NA No No No No Oct 15 NUMBER informa informa informa informa 2011 tion in tion in tion in tion in 2:34 PM source source source source data data data data Chlamyd NEGATIV No No No NEGATIV Oct 15 ia E informa informa informa E 2011 trachom tion in tion in tion in RESULT= 2:34 PM atis source source source WITHIN rRNA data data data NORMAL [Presen ce] in LIMITSP Unspeci OSITIVE fied specime RESULT= n by Probe & ABNORMA target LEQUIVO ARLINE amplifi RESULT= cation method INDETER MINATEU NSATISF ACTORY RESULT= INVALID Neisser NEGATIV No No No NEGATIV Oct 15 ia E informa informa informa E 2011 gonorrh tion in tion in tion in RESULT= 2:34 PM oeae source source source WITHIN rRNA data data data NORMAL [Presen ce] in LIMITSP Unspeci OSITIVE fied specime RESULT= n by Probe & ABNORMA target LEQUIVO ARLINE amplifi RESULT= cation method INDETER MINATEU NSATISF ACTORY RESULT= INVALID EFFECTI VE NOVEMBE R [id number]: THE APTIMA COMBO 2 NUCLEIC ACIDAMP LIFICAT ION ASSAY IS NOT INTENDE D FOR THE EVALUAT ION OFSUSPE CTED SEXUAL ABUSE OR FOR OTHER MEDICO- LEGAL INDICAT IONS.FA LSE POSITIV E RESULTS ARE POSSIBL E.\.br\ This report contain s patient informa tion that must be protect ed in [place] nce with the Health Ins[facility] ce [facility] lit and Account ability Act. CHLAMYDIA AND GONORRHEA TESTING Observa Value Referen Units Interpr Notes Date tion ce etation Range COLLECT NA No No No No Oct 15 OR informa informa informa informa 2011 tion in tion in tion in tion in 2:34 PM source source source source data data data data ETHNICI WHITE, No No No No Oct 15 TY NON-HIS informa informa informa informa 2011 PANIC tion in tion in tion in tion in 2:34 PM source source source source data data data data KIT No No No No Oct 15 EXPIRAT 2 informa informa informa informa 2011 ION tion in tion in tion in tion in 2:34 PM DATE source source source source data data data data SYMPTOM NO No No No No Oct 15 S informa informa informa informa 2011 tion in tion in tion in tion in 2:34 PM source source source source data data data data REASON REVISIT No No No No Oct 15 FOR /ANNUAL informa informa informa informa 2011 REQUEST FAMILY tion in tion in tion in tion in 2:34 PM source source source source PLANNIN data data data data G VISIT SPECIME FEMALE No No No No Oct 15 N ENDOCER informa informa informa informa 2011 SOURCE VICAL tion in tion in tion in tion in 2:34 PM source source source source data data data data PREGNAN NO No No No No Oct 15 T informa informa informa informa 2011 tion in tion in tion in tion in 2:34 PM source source source source data data data data CHART NA No No No No Oct 15 NUMBER informa informa informa informa 2011 tion in tion in tion in tion in 2:34 PM source source source source data data data data Chlamyd Pending No No No No Oct 15 ia informa informa informa informa 2011 trachom tion in tion in tion in tion in 2:34 PM atis source source source source rRNA data data data data [Presen ce] in Unspeci fied specime n by Probe & target amplifi cation method Neisser Pending No No No \.br\Oct 15 ia informa informa informa is 2010 gonorrh tion in tion in tion in report 2:34 PM oeae source source source contain rRNA data data data s [Presen patient ce] in Unspeci informa fied tion specime that n by must be Probe & target protect ed in amplifi accorda cation nce method with the Health Ins[employer] ce Portabi lity and Account ability Act.
--- OUTSIDE RECORDS SUMMARY | 2017-08-09 19:21 | External Medical Summary Rpt | CCD ---
Author Author , [employer] Address Unknown Phone [email or web address] Immunization Name Date Rout CVX Reac Dose Comm Prov Is Faci e tion ent ider Refu lity Give sed n Tdap 07- 115 999 Hist H149 No H149 , 8-20 oric Adso 11 al rbed Info rmat ion - Sour ce Unsp ecif ied
--- OUTSIDE RECORDS SUMMARY | 2017-08-09 19:21 | External Medical Summary Rpt | CCD ---
Author Author , PAYTON Organization PAYTON Address Unknown Phone [email or web address] Care Team Providers Care Surgery Assistant Name Role Phone MELY BINGHAM, MELY Unavailable Unavailable ZACHERY MELY ZACHERY, ARNGEORGETTE Unavailable Unavailable ZACHERY BEINEKE, BEINEKE Unavailable Unavailable JESUS, JESUS Unavailable Unavailable SARAI TER, SARAI TER Unavailable Unavailable CASTELLANOS, CASTELLANOS Unavailable Unavailable CASTELLANOS TRINA, CASTELLANOS Unavailable Unavailable [facility] Unavailable Unavailable [facility] FEEBACK, FEEBACK Unavailable Unavailable ANTON ALBERT, ANTON ALBERT Unavailable Unavailable [facility] Unavailable Unavailable SILAS, [facility] Unavailable Unavailable SILAS, [facility] Unavailable Unavailable INC, [facility], Unavailable Unavailable [facility], Unavailable Unavailable [facility] Unavailable Unavailable IM[facility], [facility] MAI ZACHERY, MAI Unavailable Unavailable [...] & CYTOLOGY LAB TEX DAN, Unavailable Unavailable PICKPAULA DAN PICKMIKEYIMER JR JUMA, Unavailable Unavailable PICKLESIMER JR JUMA PICKLESIMER JR JUMA, Unavailable Unavailable PICKLESIMER JR JUMA [facility] Unavailable Unavailable [facility], [facility] RENUSCH, RENUSCH Unavailable Unavailable [facility] # Unavailable Unavailable [id number], [facility] # [id number] 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 [...] RELATED TO [facility] LIFESTYLE INC UNSPECIFIED [id number] ATYP SQ 08-29-[address] [facility] CELLS UNDET PHYSICIANS GROUP SIGNIFICANC E CYTOL SMER CERV V2509 OT GENERAL 03-30-[address] [facility] PHYSICIANS CNSL&ADVICE GROUP CONTRACEPT MANAGEMENT V692 PROBLEMS 03-30-[address] [facility] RELATED TO PHYSICIANS HIGH-RISK GROUP SEXUAL BEHAVIOR 01928 PAP SMER 03-02-2015 [facility], CERV W/LW LLC GRADE SQUAMOUS INTRAEPITH LES 6253 DYSMENORRHE 12-16-2014 [facility] 41548 OTHER 12-16-2014 [facility] FATIGUE INC 65589 PAP SMER 08-18-2014 [facility] CERV HEALTH W/ATYPICAL CLINIC OF SQUAMOUS [place] CELLS UNDET 95744 OTH 08-18-2014 [facility] ABNORMAL [facility] SMEAR [place] CERVIX&CERV HPV V7231 ROUTINE 08-18-2014 [facility], GYNECOLOGIC LLC AL EXAMINATION 1105 DERMATOPHYT 12-10-2013 MELY BINGHAM OSIS OF THE BODY 3829 UNSPECIFIED 12-10-2013 MELY BINGHAM OTITIS MEDIA 15774 UNS 11-02-2013 MELY BINGHAM GASTRITIS&G ASTRODUODIT IS W/O MENTION HEMORR 0794 HUMAN 09-06-2013 PATHOLOGY & [place] CYTOLOGY VIRUS IN LAB CCE & UNS SITE 91322 MODERATE 09-06-2013 [facility] DYSPLASIA HEALTH OF [facility] CLINIC OF [place] 1121 CANDIDIASIS 08-17-2013 PATHOLOGY & OF VULVA CYTOLOGY AND VAGINA LAB 6160 CERVICITIS 08-17-2013 PATHOLOGY & AND CYTOLOGY ENDOCERVICI LAB TIS V2549 SURVEILLANC 03-16-2013 [facility] E OTH PREV HEALTH PRSC CLINIC OF CONTRACEPT [place] METHOD 62057 MILD 02-03-2013 PATHOLOGY & DYSPLASIA CYTOLOGY OF CERVIX LAB 96777 CERV HIGH 12-29-2012 PATHOLOGY & RISK HUMAN CYTOLOGY PAPILLOMAVI LAB JOE DNA TEST POS V2689 OTHER 07-31-2012 [facility] MANAGEMENT 97408 OTHER 06-11-2012 [place] VISUAL GRE DISTORTIONS AND ENTOPTIC PHENOMENA 2662 OTHER 05-18-2012 [facility] B-COMPLEX HEALTH DEFICIENCIE CENTER S 07750 TRICHOMONAL 12-03-2011 [facility] VULVOVAGINI CENTER TIS V1589 OTH SPEC 10-15-2011 PICK[facility]ER PERS HX JR JUMA PRESENTING [facility] HEALTH OTH V069 NEED PROPH 05-13-2011 [facility] VACCINATION HEALTH W/UNSPEC CENTER COMB VACCINE Medications [...] 5 96 AR CE MA TA CY [place] NO PH 7. 5- 32 5 00 [...] CA PS 10 UL 05 E 91 Procedures Procedure DOS Code Location Performer Comment CYTP C/V 30657 [facility], PICKLESIM AUTO THIN 7 LLC ER JR [place] S[place] [address] [facility] TRANSVAGI 7 MEDICAL NAL IMAGING ASS COMPREHEN 38394 [facility] SIVE 7 [facility] METABOLIC INC INC PANEL THER 10536 [facility] PROPH/DX 7 [facility] NJX IV INC INC PUSH SINGLE/1S T SBST/DRUG URNLS DIP 59420 [facility] 7 [facility] STICK/TAB INC INC LET REAGENT AUTO MICROSCOP Y BLOOD 33627 [facility] COUNT 7 [facility] COMPLETE INC INC AUTO&AUTO DIFRNTL WBC THERAPEUT 31891 [facility] IC 7 [facility] INJECTION INC INC IV PUSH EACH NEW DRUG TX MISSED [address] [facility] JASMIN 7 PHYSICIAN FIRST S GROUP TRIMESTER SURGICAL BASIC 54534 [facility] METABOLIC 7 [facility] PANEL INC INC CALCIUM TOTAL ANESTHESI 77660 [facility] FEEBACK A 7 ANESTH INCOMPLET OF THE E/MISSED BLUE US PREG [address] [facility] JASMIN UTERUS 7 PHYSICIAN REAL TIME S GROUP F/U TRNSABDL PER FETUS COLLECTIO 88484 [facility] N VENOUS 7 [facility] BLOOD INC INC VENIPUNCT URE INF AGT G0432 [facility] AB DETECT 7 [facility] EIA TECH INC INC HIV-1&/HI V-2 SCR OBSTETRIC 28785 [facility] PANEL 7 [facility] INC INC DRUG TEST [address] [facility] JASMIN PRSMV 7 PHYSICIAN QUAL DIR S GROUP OPTICAL OBS PER DAY COLLECTIO 13570 [facility] N VENOUS 7 [facility] BLOOD INC INC VENIPUNCT URE URINE [address] [facility] JASMIN 7 PHYSICIAN TEST S GROUP VISUAL COLOR CMPRSN METHS URINE 63708 [facility] 6 [facility] TEST DHS/CO HLTH DEPT VISUAL HEALTH JERAD COLOR CMPRSN METHS COLPOSCOP [address] [facility] CASTELLANOS Y CERVIX 6 PHYSICIAN ENDOCERVI S GROUP ARLINE CURETTAGE CYTP C/V 53370 [facility], PICKLESIM AUTO THIN 6 LLC ER JR JUMA LYR PREPJ SCR MNL RESCR PHYS CYTP C/V 93301 [facility], PICKLESIM AUTO THIN 6 LLC ER JR JUMA LYR PREPJ SCR MNL RESCR PHYS COLPOSCOP [address] [facility] CASTELLANOS Y CERVIX 6 PHYSICIAN TRINA ENDOCERVI S GROUP ARLINE CURETTAGE SMR PRIM [address] [facility] CASTELLANOS SRC WET 6 PHYSICIAN [place]INA M[place] S GROUP NFCT AGT IADNA 00708 [facility] CHLAMYDIA 6 [facility] INC INC TRACHOMAT IS AMPLIFIED PROBE TQ IADNA 76928 [facility] NEISSERIA 6 [facility] INC INC GONORRHOE AE AMPLIFIED PROBE TQ CYTP C/V 63492 [facility], P[facility] AUTO THIN 5 LLC ER JR JUMA LYR PREPJ SCR MNL RESCR PHYS COLPOSCOP [address] [facility] CASTELLANOS Y CERVIX 5 PHYSICIAN ENDOCERVI S GROUP ARLINE CURETTAGE ANTIBODY 14845 [facility] HERPES 5 [facility] SMPLX INC INC TYPE 1 ANTIBODY 73969 [facility] VIRUS NOT 5 [facility] INC INC ELSEWHERE SPECIFIFE D INF AGT G0432 [facility] AB DETECT 5 [facility] EIA TECH INC INC HIV-1&/HI V-2 SCR IADNA 84943 [facility] CHLAMYDIA 5 [facility] INC INC TRACHOMAT IS AMPLIFIED PROBE TQ URINE [address] [facility] CASTELLANOS 5 PHYSICIAN TEST S GROUP VISUAL COLOR CMPRSN METHS IADNA 29855 [facility] NEISSERIA 5 [facility] INC INC GONORRHOE AE AMPLIFIED PROBE TQ COLLECTIO 41344 [facility] N VENOUS 5 [facility] BLOOD INC INC VENIPUNCT URE CYTP C/V 06857 [facility], [facility] AUTO THIN 5 LLC LLC LYR PREPJ SCR MNL RESCR PHYS 25 88462 [facility] HYDROXY 5 [facility] INCLUDES INC INC FRACTIONS IF PERFORMED CYANOCOBA 83766 [facility] JUSTIN 5 [facility] VITAMIN INC INC B-12 GONADOTRO 93392 [facility] PIN 5 [facility] LUTEINIZI INC INC NG HORMONE COLLECTIO 84480 [facility] N VENOUS 5 [facility] BLOOD INC INC VENIPUNCT URE COMPREHEN 28250 [facility] SIVE 5 [facility] [place] [address] [facility] THYROID 5 [facility] STIMULATI INC INC NG HORMONE TSH GONADOTRO 01235 [facility] PIN 5 [facility] FOLLICLE INC INC STIMULATI NG HORMONE GONADOTRO 03228 [facility] PIN 5 [facility] CHORIONIC INC INC QUALITATI VE BLOOD 19695 [facility] COUNT 5 [facility] COMPLETE INC INC AUTO&AUTO DIFRNTL WBC COLPOSCOP 82228 [facility] Y CERVIX 4 HEALTH [facility] ENDOCERVI [facility] CURETTAGE CYTP C/V 94414 [facility], [facility], AUTO THIN 4 LLC LLC LYR PREPJ SCR MNL RESCR PHYS CYTP 06465 [facility], MAI CERVICAL/ 4 LLC ZACHERY VAGINAL REQ INTERP PHYSICIAN CYTP C/V 62048 [facility], MAI AUTO THIN 4 LLC ZACHERY LYR PREPJ SCR MNL RESCR PHYS COLPOSCOP 53691 [facility] CASTELLANOS Y CERVIX 4 TRINA TRINA ENDOCERVI ARLINE CURETTAGE COLPOSCOP 13163 [facility] Y CERVIX 3 HEALTH TRINA VAG ELTRD CLINIC [place] [address] PATHOLOGY MAI SURG 3 & ZACHERY PATHOLOGY CYTOLOGY LAB GROSS&ALBERT ROSCOPIC EXAM URINE 60478 [facility] CASTELL[facility] 3 HEALTH TRINA TEST CLINIC OF VISUAL [place] [address] PATHOLOGY PICKLESIM SURG 3 & ER JR JUMA PATHOLOGY CYTOLOGY LAB GROSS&ALBERT ROSCOPIC EXAM CYTP 59028 PATHOLOGY PICKLESIM CERVICAL/ 3 & ER JR JUMA VAGINAL CYTOLOGY REQ LAB INTERP PHYSICIAN CYTP C/V 89112 PATHOLOGY PICKLESIM AUTO THIN 3 & ER JR JUMA LYR CYTOLOGY PREPJ SCR LAB MNL RESCR PHYS COLPOSCOP 71487 [facility] Y CERVIX 3 HEALTH TRINA BX CERVIX CLINIC OF & KE[place] ENDOCRV CURRETAGE COLPOSCOP 04154 W[facility] Y CERVIX 3 HEALTH TRINA BX CERVIX CLINIC [place] & [place] [address] PATHOLOGY ANTON ALBERT SURG 3 & PATHOLOGY CYTOLOGY LAB GROSS&ALBERT ROSCOPIC EXAM IADNA [address] [place] 3 & VIRUS CYTOLOGY HUMAN LAB AMPLIFIED PROBE TQ CYTP [address] CERVICAL/ 3 & VAGINAL CYTOLOGY REQ LAB INTERP PHYSICIAN CYTP [address] CERV/VAG 3 & AUTO THIN CYTOLOGY LAYER LAB PREP MNL SCREEN INJ J1055 [facility] MDRXYPRGE 2 [facility] ACTAT CNTRACPT USE 150 MG INJ J1055 [facility] MDRXYPRGE 2 [facility] ACTAT CNTRACPT USE 150 MG INJ J1055 [facility] MDRXYPRGE 2 [facility] ACTAT CNTRACPT USE 150 MG INJ J1055 [facility] MDRXYPRGE 2 [facility] ACTAT CNTRACPT USE 150 MG SMR PRIM 18666 [facility] SRC WET 2 [facility] NFCT AGT AMINES 98143 [facility] VAGINAL 2 [facility] FLUID SILAS CENTER QUALITATI VE PH BODY 98459 [facility] FLUID NOT 2 [facility] ELSEWHERE SPECIFIED IADNA 13765 [facility] NEISSERIA 1 [facility] GONORRHOE AE AMPLIFIED PROBE TQ IADNA 36120 [facility] CHLAMYDIA 1 [facility] TRACHOMAT IS AMPLIFIED PROBE TQ CYTP 45407 [facility] PATHOLOGY CERV/VAG 1 ER JR JUMA & AUTO THIN CYTOLOGY LAYER LAB PREP MNL SCREEN INJ J1055 [facility] MDRXYPRGE 1 [facility] ACTAT CNTRACPT USE 150 MG INJ J1055 [facility] MDRXYPRGE 1 [facility] ACTAT CNTRACPT USE 150 MG INJ J1055 [facility] MDRXYPRGE 1 [facility] ACTAT CNTRACPT USE 150 MG INJ J1055 [facility] MDRXYPRGE 1 [facility] ACTAT CNTRACPT USE 150 MG INJ J1055 [facility] HERRON MDRXYPRGE 1 [facility] ACTAT CNTRACPT USE 150 MG Encounters Encounter Start End Date Code Location Performer Type Date HOSPITAL [facility] OUTPATIEN [facility] T EMERGENCY 80733 [facility] 7 7 PHYSICIAN VISIT S, PLLC HIGH SEVERITY& THREAT FUNCJ EMERGENCY 04808 [facility] 7 7 [facility] DEPARTMEN INC T VISIT MODERATE SEVERITY HOSPITAL [facility] - 7 7 [facility] OUTPATIEN INC T HOSPITAL [facility] - 7 7 [facility] OUTPATIEN INC T OFFICE [address] [facility] CASTELLANOS OUTPATIEN 7 7 PHYSICIAN T VISIT S GROUP 25 MINUTES HOSPITAL LOLY - 7 7 [facility] OUTPATIEN INC T OFFICE [address] [facility] JESUS OUTPATIEN 6 6 PHYSICIAN T VISIT GROUP 15 MINUTES OFFICE 67904 [facility] OUTPATIEN 6 6 [facility] 20 DHS/CO HLTH DEPT MINUTES [facility] LOLY - 6 6 [facility] OUTPATIEN INC T OFFICE [address] [facility] CA[facility]LL[facility] OUTPATIEN 6 6 PHYSICIAN TRINA T VISIT S GROUP 15 MINUTES OFFICE [address] [facility] OUTPATIEN 5 5 PHYSICIAN T VISIT S GROUP 15 MINUTES HOSPITAL LOLY - 5 5 [facility] OUTPATIEN INC [facility] LOLY - 5 5 [facility] OUTPATIEN INC T OFFICE 24402 MELY BOONE OUTPATIEN 4 4 ZACHERY ZACHERY T VISIT 15 MINUTES OFFICE 99535 MELY BOONE OUTPATIEN 4 4 ZACHERY ZACHERY T VISIT 15 MINUTES OFFICE 14783 [facility] 3 3 HEALTH TRINA T VISIT 5 CLINIC OF MINUTES [place] OFFICE 07055 [facility] CONSULTAT 3 3 HEALTH TRINA ION [facility] KELL PATIENT 40 MIN OFFICE 40834 [facility] OUTPATIEN 2 2 [facility] CENTER 10 MINUTES OFFICE 81982 [facility] OUTPATIEN 2 2 [facility] 45 MINUTES OFFICE 16571 [facility] OUTPATIEN 2 2 [facility] 10 MINUTES OFFICE 27794 [facility] OUTPATIEN 2 2 [facility] 10 MINUTES OFFICE 85873 [facility] OUTPATIEN 2 2 [facility] 10 MINUTES OFFICE 53025 [facility] OUTPATIEN 2 2 [facility] 25 MINUTES PERIODIC 65445 [facility] PREVENTIV 1 1 [facility] E MED EST CENTER CENTER PATIENT 18-39 YRS OFFICE 70593 [facility] OUTPATIEN 1 1 [facility] 15 MINUTES OFFICE 00675 [facility] OUTPATIEN 1 1 [facility] 10 MINUTES OFFICE 88385 [facility] OUTPATIEN 1 1 [facility] CENTER 15 MINUTES OFFICE 95918 [facility] OUTPATIEN 1 1 [facility] CENTER 10 MINUTES
--- OUTSIDE RECORDS SUMMARY | 2017-08-09 19:21 | External Medical Summary Rpt ---
[...] MAY HAVE ADVERSE PSYCHO- SOCIAL IMPACT, [facility] NG.\.br \This report contain [...] tion that must be protect ed in kintyrea nce with the Health Insuran ce [facility] lit and Account ability Act. [...]
--- OUTSIDE RECORDS SUMMARY | 2017-08-09 19:21 | External Medical Summary Rpt | CCD ---
Author Author , PAYTON Organization PAYTON Address Unknown Phone Care Team Providers Care Labor Trainer Name Role Phone MELY BINGHAM, MELY Unavailable Unavailable ZACHERY MELY ZACHERY, ARNGEORGETTE Unavailable Unavailable ZACHERY BEINEKE, BEINEKE Unavailable Unavailable JESUS, JESUS Unavailable Unavailable SARAI TER, SARAI TER Unavailable Unavailable CASTELLANOS, CASTELLANOS Unavailable Unavailable CASTELLANOS TRINA, CASTELLANOS Unavailable Unavailable [facility] Unavailable Unavailable [facility] FEEBACK, FEEBACK Unavailable Unavailable ANTON ALBERT, ANTON ALBERT Unavailable Unavailable [facility] Unavailable Unavailable [facility], [facility] Unavailable Unavailable [facility], [facility] Unavailable Unavailable INC, [facility], [facility]available Unavailable [facility], [facility]available [facility]available [facility] Unavailable Unavailable IMAGING [facility], [facility] MAI ZACHERY, MAI Unavailable [...] Unavailable Unavailable [facility] # Unavailable Unavailable [id number], [facility] # [id number] [facility] Unavailable Unavailable DEPT [facility] Unavailable Unavailable OF [place], [facility] [place] Purpose Continuity of Care Document - 12-14-2010 through 2016 Problems Code Diagnosis DOS Provider Status [id number] ENCOUNTER 03-31-2017 [facility], 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 GENERAL RTN W/O ABNORMAL FIND M542 CERVICALGIA 11-10-2016 [facility] N939 ABNORMAL 11-10-2016 [facility] VAGINAL [facility] BLEEDING UNSPECIFIED R1030 LOWER 11-10-2016 [facility], PAIN PLLC UNSPECIFIED R938 ABNORMAL 11-10-2016 [facility] FIND ON DX MEDICAL IMAGING OT IMAGING ASS SPEC BODY STRCT O021 MISSED 11-07-2016 [facility] O034 INCOMPLETE 11-07-2016 [facility] SPONTANEOUS ANESTH OF THE BLUE W/O COMPLICATIO N Z3480 ENC 11-02-2016 [facility] OT NORMAL INC PREG UNS TRIMESTER Z3201 ENCOUNTER 10-30-2016 [facility] TEST RESULT POSITIVE J00 ACUTE 10-24-2016 [facility] NASOPHARYNG PHYSICIAN ITIS COMMON GROUP COLD Z3189 ENCOUNTER 10-10-2016 PUBLIC FOR OTHER HEALTH PROCREATIVE DHS/CO MANAGEMENT HEALTH [id number] CERV LOW 09-30-2016 [facility] RISK HUMAN PHYSICIANS PAPILLOMAVI GROUP JOE DNA TEST POS Z9189 OTHER 09-30-2016 [facility], SPECIFIED LLC PERSONAL RISK FACTORS NEC N760 ACUTE 11-28-2015 [facility] VAGINITIS PHYSICIANS GROUP Z7251 HIGH RISK 11-28-2015 [facility] HETEROSEXUA PHYSICIANS L BEHAVIOR GROUP Z729 PROBLEM 11-28-2015 [facility]ATED TO [facility] LIFESTYLE INC UNSPECIFIED P14847 ATYP SQ 08-29-2015 [facility] CELLS UNDET PHYSICIANS GROUP SIGNIFICANC E CYTOL SMER CERV V2509 OT GENERAL 03-30-2015 [facility] PHYSICIANS CNSL&ADVICE GROUP CONTRACEPT MANAGEMENT V692 PROBLEMS 03-30-2015 [facility] RELATED TO PHYSICIANS HIGH-RISK GROUP SEXUAL BEHAVIOR 90705 PAP SMER 03-02-2015 [facility], CERV W/LW LLC GRADE SQUAMOUS INTRAEPITH LES 6253 DYSMENORRHE 12-16-2014 [facility] 37319 OTHER 12-16-2014 [facility] FATIGUE INC 43780 PAP SMER 08-18-2014 [facility] CERV HEALTH W/ATYPICAL CLINIC OF SQUAMOUS [place] CELLS UNDET 43613 OTH 08-18-2014 [facility] ABNORMAL [facility] OF U SMEAR [place] CERVIX&CERV HPV V7231 ROUTINE 08-18-2014 [facility], GYNECOLOGIC LLC AL EXAMINATION 1105 DERMATOPHYT 12-10-2013 MELY BINGHAM OSIS OF THE BODY 3829 UNSPECIFIED 12-10-2013 MELY BINGHAM OTITIS MEDIA 38116 UNS 11-02-2013 MELY BINGHAM GASTRITIS&G ASTRODUODIT IS W/O MENTION HEMORR 0794 HUMAN 09-06-2013 PATHOLOGY & PAPILLOMA CYTOLOGY VIRUS IN LAB CCE & UNS SITE 30062 MODERATE 09-06-2013 [facility] DYSPLASIA HEALTH OF [facility] CLINIC OF [place] 1121 CANDIDIASIS 08-17-2013 PATHOLOGY & OF VULVA CYTOLOGY AND VAGINA LAB 6160 CERVICITIS 08-17-2013 PATHOLOGY & AND CYTOLOGY ENDOCERVICI LAB TIS V2549 SURVEILLANC 03-16-2013 [facility] E OTH PREV HEALTH PRSC CLINIC OF CONTRACEPT [place] METHOD 28576 MILD 02-03-2013 PATHOLOGY & DYSPLASIA CYTOLOGY OF CERVIX LAB 91236 CERV HIGH 12-29-2012 PATHOLOGY & RISK HUMAN CYTOLOGY PAPILLOMAVI LAB JOE DNA TEST POS V2689 OTHER 07-31-2012 [facility] PROCREATIVE C[facility] MANAGEMENT 78218 OTHER 06-11-2012 [facility] GRE DISTORTIONS AND ENTOPTIC PHENOMENA 2662 OTHER 05-18-2012 [facility] B-COMPLEX HEALTH DEFICIENCIE CENTER S 98516 TRICHOMONAL 12-03-2011 [facility] VULVOVAGINI CENTER TIS V1589 OTH SPEC 10-15-2011 [facility] HX JR JUMA PRESENTING [facility] HEALTH OTH V069 NEED PROPH 05-13-2011 [facility] VACCINATION HEALTH W/UNSPEC CENTER COMB VACCINE [...] 5 96 [address] CE MA TA CY [place] NO PH 7. 5- 32 5 00 [...] DOS Code Location Performer Comment CYTP C/V 54982 [facility], PICKLESIM AUTO THIN 7 LLC ER [place] S[place] [address] [facility] TRANSVAGI 7 MEDICAL NAL IMAGING ASS COMPREHEN 02508 [facility] SIVE 7 [facility] METABOLIC INC INC PANEL THER 21248 [facility] PROPH/DX 7 [facility] NJX IV INC INC PUSH SINGLE/1S T SBST/DRUG URNLS DIP 86002 [facility] 7 [facility] STICK/TAB INC INC LET REAGENT AUTO MICROSCOP Y BLOOD 03291 [facility] COUNT 7 [facility] COMPLETE INC INC AUTO&AUTO DIFRNTL WBC THERAPEUT 85305 [facility] IC 7 [facility] INJECTION INC INC IV PUSH EACH NEW DRUG TX MISSED 31871 [facility] JASMIN 7 PHYSICIAN FIRST S GROUP TRIMESTER SURGICAL BASIC 45009 [facility] METABOLIC 7 [facility] PANEL INC INC CALCIUM TOTAL ANESTHESI 42716 [facility] FEEBACK A 7 ANESTH INCOMPLET OF THE E/MISSED BLUE US PREG 89027 [facility] JASMIN UTERUS 7 PHYSICIAN REAL TIME S GROUP F/U TRNSABDL PER FETUS COLLECTIO 62512 [facility] N VENOUS 7 [facility] BLOOD INC INC VENIPUNCT URE INF AGT G0432 [facility] AB DETECT 7 [facility] EIA TECH INC INC HIV-1&/HI V-2 SCR OBSTETRIC 88501 [facility] PANEL 7 [facility] INC INC DRUG TEST 75460 [facility] JASMIN PRSMV 7 PHYSICIAN QUAL DIR S GROUP OPTICAL OBS PER DAY COLLECTIO 79932 [facility] N VENOUS 7 [facility] BLOOD INC INC VENIPUNCT URE URINE 09079 [facility] JASMIN 7 PHYSICIAN TEST S GROUP VISUAL COLOR CMPRSN METHS URINE 48126 [facility] TEST DHS/CO HLTH DEPT VISUAL HEALTH JERAD COLOR CMPRSN METHS COLPOSCOP 24063 [facility] CASTELLANOS Y CERVIX 6 PHYSICIAN ENDOCERVI S GROUP ARLINE CURETTAGE CYTP C/V 72968 [facility] PICKLESIM AUTO THIN 6 LLC ER JR JUMA LYR PREPJ SCR MNL RESCR PHYS CYTP C/V 94302 [facility], PICKLESIM AUTO THIN 6 LLC ER JR JUMA LYR PREPJ SCR MNL RESCR PHYS COLPOSCOP 78123 [facility] CASTELLANOS Y CERVIX 6 PHYSICIAN TRINA ENDOCERVI S GROUP ARLINE CURETTAGE SMR PRIM 72940 [facility] CASTELLANOS SRC WET 6 PHYSICIAN TRINA MOUNT S GROUP NFCT AGT IADNA 05703 [facility] CHLAMYDIA 6 [facility] INC INC TRACHOMAT IS AMPLIFIED PROBE TQ IADNA 75026 [facility] NEISSERIA 6 [facility] INC INC GONORRHOE AE AMPLIFIED PROBE TQ CYTP C/V 61516 [facility], PICKLESIM AUTO THIN 5 LLC ER JR JUMA LYR PREPJ SCR MNL RESCR PHYS COLPOSCOP 31891 [facility] CASTELLANOS Y CERVIX 5 PHYSICIAN ENDOCERVI S GROUP ARLINE CURETTAGE ANTIBODY 84949 [facility] HERPES 5 [facility] SMPLX INC INC TYPE 1 ANTIBODY 82418 [facility] VIRUS NOT 5 [facility] INC INC ELSEWHERE SPECIFIFE D INF AGT G0432 [facility] AB DETECT 5 [facility] EIA TECH INC INC HIV-1&/HI V-2 SCR IADNA 29463 [facility] CHLAMYDIA 5 [facility] INC INC TRACHOMAT IS AMPLIFIED PROBE TQ URINE 36039 [facility] CASTELLANOS 5 PHYSICIAN TEST S GROUP VISUAL COLOR CMPRSN METHS IADNA 74313 [facility] NEISSERIA 5 [facility] INC INC GONORRHOE AE AMPLIFIED PROBE TQ COLLECTIO 07563 [facility] N VENOUS 5 [facility] BLOOD INC INC VENIPUNCT URE CYTP C/V 48886 [facility], [facility], AUTO THIN 5 LLC LLC LYR PREPJ SCR MNL RESCR PHYS 25 26937 [facility] HYDROXY 5 [facility] INCLUDES INC INC FRACTIONS IF PERFORMED CYANOCOBA 42761 [facility] JUSTIN 5 [facility] VITAMIN INC INC B-12 GONADOTRO 07333 [facility] PIN 5 [facility] LUTEINIZI INC INC NG HORMONE COLLECTIO 30100 [facility] N VENOUS 5 [facility] BLOOD INC INC VENIPUNCT URE COMPREHEN 96673 [facility] SIVE 5 [facility] [place] [address] [facility] THYROID 5 [facility] STIMULATI INC INC NG HORMONE TSH GONADOTRO 67087 [facility] PIN 5 [facility] FOLLICLE INC INC STIMULATI NG HORMONE GONADOTRO 82982 [facility] PIN 5 [facility] CHORIONIC INC INC QUALITATI VE BLOOD 69133 [facility] COUNT 5 [facility] COMPLETE INC INC AUTO&AUTO DIFRNTL WBC COLPOSCOP 93073 [facility] Y CERVIX 4 [facility] CURETTAGE CYTP C/V 53328 [facility], AUTO THIN 4 LLC LLC LYR PREPJ SCR MNL RESCR PHYS CYTP 67346 [facility], MAI CERVICAL/ 4 LLC ZACHERY VAGINAL REQ INTERP PHYSICIAN CYTP C/V 15917 [facility], MAI AUTO THIN 4 LLC ZACHERY LYR PREPJ SCR MNL RESCR PHYS COLPOSCOP 79549 [facility] CASTELLANOS Y CERVIX 4 TRIAN TRINA ENDOCERVI ARLINE CURETTAGE COLPOSCOP 99265 [facility] Y CERVIX 3 HEALTH [facility] VAG ELTRD CLINIC OF [place] [address] PATHOLOGY MAI SURG 3 & ZACHERY PATHOLOGY CYTOLOGY LAB GROSS&ALBERT ROSCOPIC EXAM URINE 97395 [facility] 3 HEALTH [facility] TEST CLINIC OF VISUAL [place] [address] PATHOLOGY PICKLESIM SURG 3 & ER JR JUMA PATHOLOGY CYTOLOGY LAB GROSS&ALBERT ROSCOPIC EXAM CYTP 07947 PATHOLOGY PICKLESIM CERVICAL/ 3 & ER JR JUMA VAGINAL CYTOLOGY REQ LAB INTERP PHYSICIAN CYTP C/V 92821 PATHOLOGY PICKLESIM AUTO THIN 3 & ER JR JUMA LYR CYTOLOGY PREPJ SCR LAB MNL RESCR PHYS COLPOSCOP 38823 [facility] Y CERVIX 3 HEALTH [facility] BX CERVIX CLINIC OF & [place] ENDOCRV CURRETAGE COLPOSCOP 48217 W[facility] Y CERVIX 3 [facility]ALTH [facility] BX CERVIX CLINIC OF & [place] [address] PATHOLOGY ANTON ALBERT SURG 3 & PATHOLOGY CYTOLOGY LAB GROSS&ALBERT ROSCOPIC EXAM IADNA [address] PAPILLOMA 3 & VIRUS CYTOLOGY HUMAN LAB AMPLIFIED PROBE TQ CYTP [address] CERVICAL/ 3 & VAGINAL CYTOLOGY REQ LAB INTERP PHYSICIAN CYTP [address] CERV/VAG 3 & AUTO THIN CYTOLOGY LAYER LAB PREP MNL SCREEN INJ J1055 [facility] MDRXYPRGE 2 [facility] ACTAT CNTRACPT USE 150 MG INJ J1055 [facility] MDRXYPRGE 2 [facility] ACTAT CNTRACPT USE 150 MG INJ J1055 [facility] MDRXYPRGE 2 [facility] ACTAT CNTRACPT USE 150 MG INJ J1055 [facility] MDRXYPRGE 2 [facility] ACTAT CNTRACPT USE 150 MG SMR PRIM 46552 [facility] SRC WET 2 [facility] NFCT AGT AMINES 62818 [facility] VAGINAL 2 [facility] FLUID SAREPTA CENTER QUALITATI VE PH BODY 75396 [facility] FLUID NOT [address] [facility] CENTER ELSEWHERE SPECIFIED IADNA 08493 [facility] NEISSERIA 1 [facility] [place] GONORRHOE AE AMPLIFIED PROBE TQ IADNA 99719 [facility] CHLAMYDIA 1 [facility] [place] TRACHOMAT IS AMPLIFIED PROBE TQ CYTP 80431 P[facility] PATHOLOGY CERV/VAG 1 ER JR JUMA & AUTO THIN CYTOLOGY LAYER LAB PREP MNL SCREEN INJ J1055 [facility] MDRXYPRGE 1 [facility] ACTAT CNTRACPT USE 150 MG INJ J1055 [facility] MDRXYPRGE 1 [facility] ACTAT CNTRACPT USE 150 MG INJ J1055 [facility] MDRXYPRGE 1 [facility] ACT[facility] CNTRACPT USE 150 MG INJ J1055 [facility] MDRXYPRGE 1 [facility] ACTAT CNTRACPT USE 150 MG INJ J1055 [facility] HERRON MDRXYPRGE 1 [facility] ACTAT CNTRACPT USE 150 MG Encounters Encounter Start End Date Code Location Performer Type Date HOSPITAL [facility]PAT[facility] T EMERGENCY 17150 [facility] 7 7 PHYSICIAN VISIT S, PLLC HIGH SEVERITY& THREAT FUNCJ EMERGENCY 36184 [facility] 7 7 [facility] DEPARTMEN INC T VISIT MODERATE SEVERITY HOSPITAL [facility] - 7 7 [facility] OUTPATIEN INC T HOSPITAL [facility] - 7 7 [facility] OUTPATIEN INC T OFFICE 49120 [facility] CASTELLANOS OUTPATIEN 7 7 PHYSICIAN T VISIT S GROUP 25 MINUTES HOSPITAL [facility] - 7 7 [facility] OUTPATIEN INC T OFFICE 22055 [facility] JESUS OUTPATIEN 6 6 PHYSICIAN T VISIT GROUP 15 MINUTES OFFICE 38177 [facility] OUTPATIEN 6 6 [facility] T [facility] 20 DHS/CO HLTH DEPT MINUTES [facility] LOLY - 6 6 [facility] OUTPATIEN INC T OFFICE 92291 [facility] CASTELLANOS OUTPATIEN 6 6 PHYSICIAN TRINA T VISIT S GROUP 15 MINUTES OFFICE 91339 [facility] CASTELLANOS OUTPATIEN 5 5 PHYSICIAN T VISIT S GROUP 15 MINUTES HOSPITAL [facility] - 5 5 [facility] OUTPATIEN INC [facility] LOLY - 5 5 [facility] OUTPATIEN INC T OFFICE 63048 MELY BOONE OUTPATIEN 4 4 ZACHERY ZACHERY T VISIT 15 MINUTES OFFICE 08961 MELY BOONE OUTPATIEN 4 4 ZACHERY ZACHERY T VISIT 15 MINUTES OFFICE 96990 [facility] OUTPATIEN 3 3 HEALTH [facility] T VISIT 5 CLINIC OF MINUTES [place] OFFICE 85441 [facility] CONSULTAT 3 3 [facility]ALTH [facility] ION [facility] KELL PATIENT 40 MIN OFFICE 24199 [facility] OUTPATIEN 2 2 [facility] HEALTH T VISIT CENTER CENTER 10 MINUTES OFFICE 81067 [facility] OUTPATIEN 2 2 [facility] T NEW 45 MINUTES OFFICE 09019 [facility] OUTPATIEN 2 2 [facility] HEALTH T VISIT CENTER CENTER 10 MINUTES OFFICE 62039 [facility] OUTPATIEN 2 2 [email or web address] T [facility]IT [facility] CENTER 10 MINUTES OFFICE 44456 [facility] OUTPATIEN 2 2 [email or web address]IT [facility] CENTER 10 MINUTES OFFICE 17239 [facility] OUTPATIEN 2 2 [facility] 25 MINUTES PERIODIC 63637 [facility] PREVENTIV 1 1 [facility] EST CENTER CENTER PATIENT 18-39 YRS OFFICE 92343 [facility] OUTPATIEN 1 1 [email or web address] T [facility]IT C[facility] CENTER 15 MINUTES OFFICE 51546 [facility] OUTPATIEN 1 1 [email or web address] T [facility]IT C[facility] CENTER 10 MINUTES OFFICE 36870 [facility] OUTPATIEN 1 1 [email or web address] T [facility]ISIT CENTER CENTER 15 MINUTES OFFICE 96494 [facility] OUTPATIEN 1 1 [email or web address] T VISIT CENTER CENTER 10 MINUTES
--- OUTSIDE RECORDS SUMMARY | 2017-08-09 19:21 | External Medical Summary Rpt | CCD ---
Author Author , PAYTON Organization PAYTON Address Unknown Phone [email or web address] Immunization Name Date Rout CVX Reac Dose Comm Prov Is Faci e tion ent ider Refu lity Give sed n Tdap 07- 115 999 Hist H149 No H149 , 8-20 oric Adso 11 al rbed Info rmat ion - Sour ce Unsp ecif ied
== END 2017-08-08 11:16 | disposition home or self-care (01) ==
LOC: UTC 10:35
PROVIDERS: Nurse Practitioner
DX: O26.891 Other specified pregnancy related conditions, first trimester (principal); M54.5 Low back pain; Z88.0 Allergy status to penicillin

== ENCOUNTER 2017-09-03 10:37 | Emergency (ER) | payer MEDICAID ==
[~2017-09-03] VITALS: Ht 165.1 cm; Wt 85.3 kg
[~2017-09-03 10:37] MED LIST changes: +MACROBID 100MG100 M1 PO
[2017-09-03] MEDS ORDERED: PRENATAL PLUS1 TA1 PO (10:48)
[2017-09-03] MEDS ORDERED: UNISOM25 M2 PO (10:49)
[2017-09-03] MEDS ORDERED: VITAMIN B-625 M1 PO (10:50)
--- NOTE | 2017-09-03 11:02 | Emergency Room Report ---
History of Present Illness Time Seen by 1038 Presenting Problem in Triage Pt arrived:Walked Presenting Problem:VAGINAL BLEEDING THAT BEGAN THIS AM, PALE PINK. STATES SHE HAD A MISCARRIAGE IN OCT AT [address] RAMIREZ AUG 27, CONFIRMED BY US SHE WAS 6 WEEKS AND 2 DAYS AT THAT TIME. PT COMPLAINS OF MILD CRAMPING. 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 N Clinical Suspician of Infection? N Mental Status: 1 - Regular (Normal Baseline) Sepsis Risk:Possible Sepsis Risk Have you (or family members/close friends) recently traveled outside the [place]? N If Yes, where/when: Have you had exposure to infectious disease within the past month? TB? Other? Specify: Comment 3, para 1, Ab1, with light vaginal spotting that started today, minimal cramping. No tissue. Currently 7 weeks gestation by ultrasound one week ago. Spray Rig Operator is Dr. Ramirez. ALLERGIES Coded Allergies: Penicillins (SEVERE RASH 11/07/16) tetanus and diphtheria toxoids (SWELLING/RASH 11/07/16) Home Medications Reported Medications MULTIVIT-MIN W/FE-FA ( Multivitamin Tablet) 1 TAB PO DAILY Doxylamine Succinate (Unisom) 12.5 MG PO DAILY Pyridoxine HCl (Vitamin B-6) 25 MG PO DAILY History Medical History General CAD? No Angina: No MO: No Hypertension? No Hyperlipidemia? No CHF? No DVT? No PE? No COPD? No Asthma? No Anemia? No GERD? No Gastric ulcers? No GI Bleed? No Hernia? No Thyroid Problems? No Hypothyroidism? No CVA? No Seizures? No Diabetes? No Renal Insuffiency? No End Stage Renal Disease? No UTI? Yes Stones? No BPH? No GB Disease: Yes Nephritic Syndrome? No Asplenia? No Hepatitis? No Sickle Cell Disease? No Arthritis? No Migraines? No Cataracts? No Glaucoma? No MRSA? No HIV? No TB? No Anxiety? No Depression? No Cancer? No More? 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 Physical Exam Vital Signs Vital Signs Date Time Temp Pulse Resp B/P Pulse O2 O2 Flow FiO2 Ox Delivery Rate 09/03 1245 97.8 97 20 132/103 97 09/03 1041 97.8 97 20 132/103 97 General Appearance using smart phone Eye Exam - bilateral eye normal exam, bilateral eye PERRL, bilateral eye EOMI Ear, Nose, Throat hearing grossly normal, normal ENT inspection Neck normal inspection Respiratory Status Yes: trachea midline, chest symmetrical, non tender chest. No: respiratory distress. Lung Sounds bilateral: normal breath sounds, lungs clear. Cardiovascular normal exam, regular rate/rhythm, no peripheral edema, no gallop, no JVD, no murmur, no rub Gastrointestinal normal bowel sounds, normal exam, non tender, soft, no organomegaly Extremities non-tender, normal range of motion, normal inspection Neurologic alert Mental status normal mood/affect Skin intact, normal color, warm/dry Medical Decision Making LABS/Meds/Orders Pt receiving controlled substance in ED? No Results/Orders Laboratory Tests 09/03/17 1055: Urine Color YELLOW, Urine Appearance CLEAR, Urine pH 6.0, Ur Specific [place] <= 1.005, Urine Protein NEGATIVE, Urine Ketones NEGATIVE, Urine Blood TRACE-LYSED, Urine Nitrate NEGATIVE, Urine Bilirubin NEGATIVE, Urine Urobilinogen 0.2, Ur Leukocyte Esterase NEGATIVE, Urine RBC NONE, Urine WBC OCC, Ur Squamous Epith Cells 3-5, Urine Bacteria 1+, Urine Glucose NEGATIVE Orders Procedure Date/time Status URINALYSIS/COMPLETE 09/03 1052 Complete XRAY/CT/US XRAY/CT/US Ultrasound pelvis Comment Radiologist reading is 6 week 5 day size fetus with no heart tones. Heart tones have been present on the ultrasound one week ago which showed a 6 week 2 day size fetus. Progress - 12:30 PM: Case discussed with Dr. Ramirez. He will see the patient at 1:30 PM today in his office to discuss further management. Departure Departure Disposition DC Home or Self Care(routine) Clinical Impression Primary Impression: Foetal demise, less than 22 weeks Condition STABLE Additional Instructions See Dr. Ramirez in his office today at 1:30 PM. ED Critical Care Critical Care No at 5356
--- NOTE | 2017-09-03 11:02 | Emergency Room Report ---
History of Present Illness Time Seen by 1038 Presenting Problem in Triage Pt arrived:Walked Presenting Problem:VAGINAL BLEEDING THAT BEGAN THIS AM, PALE PINK. STATES SHE HAD A MISCARRIAGE IN OCT AT [address] RAMIREZ AUG 27, CONFIRMED BY US SHE WAS 6 WEEKS AND 2 DAYS AT THAT TIME. PT COMPLAINS OF MILD CRAMPING. 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 N Clinical Suspician of Infection? N Mental Status: 1 - Regular (Normal Baseline) Sepsis Risk:Possible Sepsis Risk Have you (or family members/close friends) recently traveled outside the [place]? N If Yes, where/when: Have you had exposure to infectious disease within the past month? TB? Other? Specify: Comment 3, para 1, Ab1, with light vaginal spotting that started today, minimal cramping. No tissue. Currently 7 weeks gestation by ultrasound one week ago. Hem Inspector is Dr. Ramirez. ALLERGIES Coded Allergies: Penicillins (SEVERE RASH 11/07/16) tetanus and diphtheria toxoids (SWELLING/RASH 11/07/16) Home Medications Reported Medications MULTIVIT-MIN W/FE-FA ( Multivitamin Tablet) 1 TAB PO DAILY Doxylamine Succinate (Unisom) 12.5 MG PO DAILY Pyridoxine HCl (Vitamin B-6) 25 MG PO DAILY History Medical History General CAD? No Angina: No [place]: No Hypertension? No Hyperlipidemia? No CHF? No DVT? No PE? No COPD? No Asthma? No Anemia? No GERD? No Gastric ulcers? No GI Bleed? No Hernia? No Thyroid Problems? No Hypothyroidism? No CVA? No Seizures? No Diabetes? No Renal Insuffiency? No End Stage Renal Disease? No UTI? Yes Stones? No BPH? No GB Disease: Yes Nephritic Syndrome? No Asplenia? No Hepatitis? No Sickle Cell Disease? No Arthritis? No Migraines? No Cataracts? No Glaucoma? No MRSA? No HIV? No TB? No Anxiety? No Depression? No Cancer? No More? 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 Physical Exam Vital Signs Vital Signs Date Time Temp Pulse Resp B/P Pulse O2 O2 Flow FiO2 Ox Delivery Rate 09/03 1245 97.8 97 20 132/103 97 09/03 1041 97.8 97 20 132/103 97 General Appearance using smart phone Eye Exam - bilateral eye normal exam, bilateral eye PERRL, bilateral eye EOMI Ear, Nose, Throat hearing grossly normal, normal ENT inspection Neck normal inspection Respiratory Status Yes: trachea midline, chest symmetrical, non tender chest. No: respiratory distress. Lung Sounds bilateral: normal breath sounds, lungs clear. Cardiovascular normal exam, regular rate/rhythm, no peripheral edema, no gallop, no JVD, no murmur, no rub Gastrointestinal normal bowel sounds, normal exam, non tender, soft, no organomegaly Extremities non-tender, normal range of motion, normal inspection Neurologic alert Mental status normal mood/affect Skin intact, normal color, warm/dry Medical Decision Making LABS/Meds/Orders Pt receiving controlled substance in ED? No Results/Orders Laboratory Tests 09/03/17 1055: Urine Color YELLOW, Urine Appearance CLEAR, Urine pH 6.0, Ur Specific [place] <= 1.005, Urine Protein NEGATIVE, Urine Ketones NEGATIVE, Urine Blood TRACE-LYSED, Urine Nitrate NEGATIVE, Urine Bilirubin NEGATIVE, Urine Urobilinogen 0.2, Ur Leukocyte Esterase NEGATIVE, Urine RBC NONE, Urine WBC OCC, Ur Squamous Epith Cells 3-5, Urine Bacteria 1+, Urine Glucose NEGATIVE Orders Procedure Date/time Status URINALYSIS/COMPLETE 09/03 1052 Complete XRAY/CT/US XRAY/CT/US Ultrasound pelvis Comment Radiologist reading is 6 week 5 day size fetus with no heart tones. Heart tones have been present on the ultrasound one week ago which showed a 6 week 2 day size fetus. Progress - 12:30 PM: Case discussed with Dr. Ramirez. He will see the patient at 1:30 PM today in his office to discuss further management. Departure Departure Disposition DC Home or Self Care(routine) Clinical Impression Primary Impression: Foetal demise, less than 22 weeks Condition STABLE Additional Instructions See Dr. Ramirez in his office today at 1:30 PM. ED Critical Care Critical Care No at 7855
[2017-09-03 11:03] LABS: URINE BILIRUBIN - DIPSTICK NEGATIVE (NEG); URINE BLOOD TRACE-LYSED (NEG)
--- OUTSIDE RECORDS SUMMARY | 2017-09-03 11:11 | External Medical Summary Rpt | CCD ---
Author Author , PAYTON CAIN Address Unknown Phone [email or web address] Purpose Continuity of Care Document - 10-15-2011 through 2016 Problems Code Diagnosis DOS Provider Status N93.9 ABNORMAL UTERINE AND VAGINAL BLEEDING, UNSPECIFIED R10.9 UNSPECIFIED ABDOMINAL PAIN Results Labs Lab Lab Date Result Refere Interp Status Commen Order Detail nces retati t Range on Rubella IgG ab (08-27-2017 10:58) Rubella = 2.04 Immune complet IgG ab 017 index >0.99 ed 10:58 Comment: Non-immune <0.90 Comment: Equivocal 0.90 - 0.99 Comment: Immune >0.99 RPR titer (08-27-2017 10:58) RPR = Non NonRea< complet titer 017 Reactiv 1:1 ed 10:58 e Comment: Performed at: [facility] Comment: [id number], [place] [phone] Comment: Data Assistant: Jairon Hackett PhD, Phone: [phone] Serum or plasma hepatitis C virus antibo (08-27-2017 10:58) Serum < 0.1 0.0-0.9 complet or 017 ed plasma 10:58 hepatit is C virus antibo Comment: INFCE Result Units: s/co ratio Comment: Negative: < 0.8 Comment: Indeterminate: 0.8 - 0.9 Comment: Positive: > 0.9 Comment: Comment: The CDC recommends that a positive HCV antibody result Comment: be followed up with a HCV Nucleic Acid Amplification Comment: test ([id number]). HBsAg Screen (08-27-2017 10:58) Serum Negativ Negativ complet hepatit 017 e e ed is B 10:58 Negativ virus e L surface antigen Comment: Performed at: [facility] Comment: [id number], [place] [id number] Comment: Data Assistant: Jairon Hackett PhD, Phone: [phone] CBC w auto diff (08-27-2017 10:58) Automat = 0.1 0.0-0.4 complet ed 017 K/mm3 ed blood 10:58 eosinop hil count Baso % = 0.5 % 0.1-2.0 complet 017 ed 10:58 Automat = 0.0 0-0.2 complet ed 017 K/MM3 ed blood 10:58 basophi l count (count/ vo Blood = 12.5 12.2-16 complet hemoglo 017 g/dL .2 ed bin 10:58 measure ment (mass/v olum Blood = 38.0 37.0-47 complet hematoc 017 % .0 ed rit 10:58 (volume fractio n) Granulo = 68.7 37.0-80 complet cyte 017 % .0 ed percent 10:58 age Blood = 4.6 1.8-7.8 complet granulo 017 K/mm3 ed cytes 10:58 automat ed count (numb Blood = 6.8 4.8-10. complet leukocy 017 K/MM3 8 ed sánchez 10:58 count (number /volume ) Automat = 12.8 11.5-17 complet ed 017 % .5 ed erythro 10:58 cyte distrib ution width Red = 4.19 4.2-5.4 complet blood 017 M/mm3 ed cell 10:58 count Blood = 354 142-424 complet platele 017 K/mm3 ed t count 10:58 Automat = 7.1 7.4-10. complet ed 017 fl 4 ed blood 10:58 platele t mean volume lópez Kane % = 6.2 % 1.7-9.3 complet 017 ed 10:58 Absolut = 0.4 0.1-1.0 complet e 017 K/mm3 ed monocyt 10:58 e count Automat = 90.7 82.2-97 complet ed 017 fl .8 ed erythro 10:58 cyte mean corpusc ular v Automat = 33.0 31.8-35 complet ed 017 g/dl .4 ed erythro 10:58 cyte mean corpusc ular h Mean = 30.0 27-31.2 complet corpusc 017 pg ed ular 10:58 hemoglo bin (MCH) determ Lymphoc = 23.5 10-50.0 complet yte 017 % ed count, 10:58 blood, automat ed Absolut = 1.6 0.7-4.5 complet e 017 K/mm3 ed lymphoc 10:58 yte count Automat = 1.2 % 0.1-12. complet ed 017 0 ed blood 10:58 eosinop hils/10 0 leukocy t Maternal antibody screen (08-27-2017 10:58) Materna NEGATIV NEGATIV complet l 017 E E ed antibod 10:58 NEGATIV y E L screen Blood ABO group typing (08-27-2017 10:58) Blood 11--2 AB AB L complet ABO 017 ed group 10:58 typing Rh blood group typing (08-27-2017 10:58) Rh 11--2 POSITIV complet blood 017 E ed group 10:58 POSITIV typing E L Blood group antibody screen [Presence] in Serum or Plasma (08-27-2017 10:58) Blood 11--2 NEGATIV NEGATIV complet group 017 E E ed antibod 10:58 y screen [Presen ce] in Serum or Plasma Rh [Type] in Blood (08-27-2017 10:58) Rh 11-01-2 POSITIV complet [Type] 017 E ed in 10:58 Blood ABO group [Type] in Blood (08-27-2017 10:58) ABO 11--2 AB complet group 017 ed [Type] 10:58 in Blood Urine test by rapid immunoassa (08-08-2017 10:48) Urine 08-08- POSITIV NEG complet pregnan 017 E ed cy test 10:48 POSITIV by E L rapid immunoa ssa Comment: YES Urinalysis by dipstick (08-08-2017 10:48) Urine NEGATIV NEG complet ketones 017 E ed 10:48 NEGATIV detecti E L on by mg/dL automat ed sánchez Glucose = NEG complet ur 017 NEGATIV ed test 10:48 E strip Urine 08-08- YELLOW YELLOW complet color 017 YELLOW ed 10:48 L Urine 08-08- TRACE NEG complet blood 017 TRACE L ed detecti 10:48 on Urine NEGATIV NEG complet total 017 E ed bilirub 10:48 NEGATIV in E L detecti on by test Urine 08-08-2 0.2 0.2 NEG complet urobili 017 L ed nogen 10:48 E.U./dL detecti on by test str Urine NEGATIV NEG complet nitrite 017 E ed 10:48 NEGATIV detecti E L on by test strip Urine NEGATIV NEG complet leukocy 017 E ed te 10:48 NEGATIV esteras E L e detecti on by au Urine = 1.015 1.005-1 complet specifi 017 .030 ed c 10:48 gravity measure ment Urine = NEG complet protein 017 NEGATIV ed 10:48 E mg/dL measure ment by automat ed t Urine = 6.0 5.0-8.5 complet pH 017 ed 10:48 Urine CLEAR CLEAR complet appeara 017 CLEAR L ed nce 10:48 determi nation Urinalysis macro (dipstick) panel in Urine (08-08-2017 10:48) Appeara 08-08- CLEAR CLEAR complet nce of 017 ed Urine 10:48 Bilirub NEGATIV NEG complet in 017 E ed [Presen 10:48 ce] in Urine by Test strip Erythro TRACE NEG Abnorma complet cytes 017 l ed [Presen 10:48 ce] in Urine Color 08-08- YELLOW YELLOW complet of 017 ed Urine 10:48 Ketones NEGATIV NEG complet 017 E ed [Presen 10:48 ce] in Urine by Automat ed test strip Leukocy 08-08-2 NEGATIV NEG complet te 017 E ed esteras 10:48 e [Presen ce] in Urine by Automat ed test strip Nitrite 08-08- NEGATIV NEG complet 017 E ed [Presen 10:48 ce] in Urine by Test strip Urobili 0.2 NEG complet nogen 017 ed [Presen 10:48 ce] in Urine by Test strip Urine test by rapid immunoassa (08-08-2017 10:48) Urine POSITIV NEG complet pregnan 017 E ed cy test 10:48 by rapid immunoa ssa CHLAMYDIA AND GONORRHEA TESTING (12-29-2012 14:00) Chlamyd [...] CHLAMYDIA AND GONORRHEA TESTING (10-15-2011 14:34) COLLECT 10-15- NA complet OR 011 ed 14:34 ETHNICI [...]
--- OUTSIDE RECORDS SUMMARY | 2017-09-03 11:11 | External Medical Summary Rpt | CCD ---
Author Author , PAYTON CAIN Address Unknown Phone [email or web address] Category Purpose Continuity of Care Document - 10-15-2011 [...] 1:1 ed 10:58 e Comment: Performed at: [facility] Comment: [id number], [place] [phone] Comment: Linoleum Layer: Jairon Hackett PhD, Phone: [phone] Serum or plasma hepatitis C virus antibo [...] a HCV Nucleic Acid Amplification Comment: test ([id number]). HBsAg Screen (08-27-2017 10:58) Serum Negativ Negativ complet hepatit 017 e e ed is B 10:58 Negativ virus e L surface antigen Comment: Performed at: [facility] Comment: [id number], [place] [phone] Comment: Linoleum Layer: Jairon Hackett PhD, Phone: [phone] CBC w auto diff (08-27-2017 10:58) Automat [...] blood 10:58 platele t mean volume lópez [place] % = 6.2 % 1.7-9.3 complet 017 [...]
--- OUTSIDE RECORDS SUMMARY | 2017-09-03 11:12 | External Medical Summary Rpt | CCD ---
Author Author [employer] Address Unknown Phone Unavailable Purpose Continuity of Care Document - through 2016
--- OUTSIDE RECORDS SUMMARY | 2017-09-03 11:13 | External Medical Summary Rpt ---
Author Author PAYTON Barron, [employer] Address Unknown Phone Unavailable Results Blood group antibody screen [Presence] in Serum or Plasma Observa Value Referen Units Interpr Notes Date tion ce etation Range Blood NEGATIV NEGATIV No No No Aug 27 group E E informa informa informa 2017 antibod tion in tion in ti in 10:58 y source source source AM screen data data data [Presen ce] in Serum or Plasma Rh [Type] in Blood Observa Value Referen Units Interpr Notes Date ti ce etation Range Rh POSITIV No No No No Aug 27 [Type] E informa informa informa informa 2017 in tion in tion in tion in tion in 10:58 Blood source source source source AM data data data data ABO group [Type] in Blood Observa Value Referen Units Interpr Notes Date ti ce etation Range ABO AB No No No No Aug 27 group informa informa informa informa 2016 [Type] tion in ti in tion in tion in 10:58 in source source source source AM Blood data data data data CBC W Auto Differential panel in Blood Observa Value Referen Units Interpr Notes Date tion ce etation Range Basophils 0 - 0.2 K/MM3 Normal No Aug 27ati 2016 [#/volume on in 10:58 AM ] in source Blood by data Automated count Basophils 0.1 - 2.0 % Normal No Aug 272016 leukocyte on in 10:58 AM s in source Blood by data Automated count Eosinophi 0.0 - 0.4 K/mm3 Normal No Aug 27 ls ati 2016 [#/volume on in 10:58 AM ] in source Blood by data Automated count Eosinophi 0.1 - % Normal No Aug 27 ls/100 12.0 2016 leukocyte on in 10:58 AM s in source Blood by data Automated count Granulocy 1.8 - 7.8 K/mm3 Normal No Aug 27 sánchez informati 2016 [#/volume on in 10:58 AM ] in source Blood by data Automated count Granulocy 37.0 - % Normal No Aug 27 sánchez/100 80.0 inform2016 leukocyte on in 10:58 AM s in source Blood by data Automated count Hematocri 37.0 - % Normal No Aug 27 t [Volume 47.0 informati 2016 on in 10:58 AM Fraction] source of Blood data Hemoglobi 12.2 - g/dL Normal No Aug 27 n 16.2 informati 2016 [Mass/vol on in 10:58 AM ume] in source Blood data Lymphocyt 0.7 - 4.5 K/mm3 Normal No Aug 27 es inform2016 [#/volume on in 10:58 AM ] in source Unspecifi data ed specimen by Automated count Lymphocyt 10 - 50.0 % Normal No Aug 27 es 2016 [#/volume on in 10:58 AM ] in source Unspecifi data ed specimen by Automated count Erythrocy 27 - 31.2 pg Normal No Aug 27 te mean 2016 corpuscul on in 10:58 AM ar source hemoglobi data n [Entitic mass] Erythrocy 31.8 - g/dl Normal No Aug 27 te mean 35.4 2016 corpuscul on in 10:58 AM ar source hemoglobi data n concentra tion [Mass/vol ume] by Automated count Erythrocy 82.2 - fl Normal No Aug 27 te mean 97.8 2016 corpuscul on in 10:58 AM ar volume source [Entitic data volume] by Automated count Monocytes 0.1 - 1.0 K/mm3 Normal No Aug 272016 [#/volume on in 10:58 AM ] in source Blood by data Automated count Monocytes 1.7 - 9.3 % Normal No Aug 27 /100 inform2016 leukocyte on in 10:58 AM s in source Blood by data Automated count Platelet 7.4 - fl Low No Aug 27 mean 10.4 inform2016 volume on in 10:58 AM [Entitic source volume] data in Blood by Automated count Platelets 142 - 424 K/mm3 Normal No Aug 272016 [#/volume on in 10:58 AM ] in source Blood data Erythrocy 4.2 - 5.4 M/mm3 Low No Aug 27 sánchez 2016 [#/volume on in 10:58 AM ] in source Amniotic data fluid Erythrocy 11.5 - % Normal No Aug 27 te 17.5 2016 distribut on in 10:58 AM ion width source [Entitic data volume] by Automated count Leukocyte 4.8 - K/MM3 Normal No Aug 27 s 10.8 inform2016 [#/volume on in 10:58 AM ] in source Blood data Urinalysis macro (dipstick) panel in Urine Observa Value Referen Units Interpr Notes Date tion ce etation Range Appeara CLEAR CLEAR No No No Aug 08 nce of informa informa informa 2017 Urine tion in tion in tion in 10:48 source source source AM data data data Bilirub NEGATIV NEG No No No Aug 08 in E informa informa informa 2016 [Presen tion in tion in tion in 10:48 ce] in source source source AM Urine data data data by Test strip Erythro TRACE NEG No Abnorma No Aug 08 cytes informa l informa 2016 [Presen tion in tion in 10:48 ce] in source source AM Urine data data Color YELLOW YELLOW No No No Aug 08 of informa informa informa 2016 Urine tion in tion in tion in 10:48 source source source AM data data data Glucose NEG No No No Aug 08 [Mass/vol informati informati informati 2016 ume] in on in on in on in 10:48 AM Urine by source source source Test data data data strip Ketones NEGATIV NEG mg/dL No No Aug 08 E informa informa 2016 [Presen tion in tion in 10:48 ce] in source source AM Urine data data by Automat ed test strip pH of 5.0 - 8.5 No Normal No Aug 08 Urine informati informati 2016 on in on in 10:48 AM source source data data Protein NEG mg/dL No No Aug 08 [Mass/vol informati informati 2016 ume] in on in on in 10:48 AM Urine by source source Automated data data test strip Specific 1.005 - No Normal No Aug 08 gravity 1.030 informati informati 2016 of Urine on in on in 10:48 AM source source data data Leukocy NEGATIV NEG No No No Aug 08 te E informa informa informa 2017 esteras tion in tion in tion in 10:48 e source source source AM [Presen data data data ce] in Urine by Automat ed test strip Nitrite NEGATIV NEG No No No Aug 08 E informa informa informa 2016 [Presen tion in tion in tion in 10:48 ce] in source source source AM Urine data data data by Test strip Urobili 0.2 NEG E.U./dL No No Aug 08 nogen informa informa 2016 [Presen tion in tion in 10:48 ce] in source source AM Urine data data by Test strip Urine test by rapid immunoassa Observa Value Referen Units Interpr Notes Date tion ce etation Range Urine POSITIV NEG No No YES Aug 08 pregnan E informa informa 2017 cy test tion in tion in 10:48 by source source AM rapid data data immunoa ssa CHLAMYDIA AND GONORRHEA TESTING Observa Value Referen Units Interpr Notes Date tion ce etation Range COLLECT NA No No No No Dec 29 OR informa informa informa informa 2013 tion [...] SYMPTOM NO No No No No Dec 29 S informa informa informa informa 2013 tion [...] data [place] NEGATIV No No No NEGATIV Dec 29 ia E informa informa informa E 2013 trachom tion in tion in tion in RESULT= 2:00 PM atis source source source WITHIN rRNA data data data NORMAL [Presen ce] in LIMITSP Unspeci OSITIVE fied specime RESULT= n by Probe & ABNORMA target LEQUIVO ARLINE amplifi RESULT= cation method INDETER MINATEU NSATISF ACTORY RESULT= INVALID Neisser NEGATIV No No No NEGATIV Dec 29 ia E informa informa informa E 2013 [...] MAY HAVE ADVERSE PSYCHO- SOCIAL IMPACT, THE [facility] MMENDS RETESTI NG.\.br \This report contain s patient informa tion that must be protect ed in accorda nce with the Health Insuran ce Portabi lity and Account ability Act. CHLAMYDIA AND GONORRHEA TESTING Observa Value Referen Units Interpr Notes Date tion ce etation Range COLLECT NA No No No No Dec 29 OR informa informa informa informa 2013 tion [...] SYMPTOM NO No No No No Dec 29 S informa informa informa informa 2013 tion [...] ACTORY RESULT= INVALID EFFECTI VE NOVEMBE R 2009: THE APTIMA COMBO 2 NUCLEIC ACIDAMP LIFICAT [...] Oct 15 ia informa informa informa informa 2010 trachom tion in tion in tion in [...]
--- OUTSIDE RECORDS SUMMARY | 2017-09-03 11:13 | External Medical Summary Rpt | CCD ---
Demographics Preferred Language Solomon Islander Marital Status Unknown Uatsdin Affiliation Unknown Race Unknown Ethnic Group Unknown Author Author , PAYTON CAIN Address Unknown Phone Immunization Unable to retrieve immunization data due to connection failure with Immunization Registry. Please try again later.
--- OUTSIDE RECORDS SUMMARY | 2017-09-03 11:13 | External Medical Summary Rpt ---
[...] MAY HAVE ADVERSE PSYCHO- SOCIAL IMPACT, THE [facility] RET[facility] NG.\.br \This report contain s [...]
--- OUTSIDE RECORDS SUMMARY | 2017-09-03 11:13 | External Medical Summary Rpt | CCD ---
Demographics Preferred Language Surinamese Marital Status Unknown Pentecostal Affiliation Unknown Race Unknown Ethnic Group Unknown Author Author , PAYTON CAIN Address Unknown Phone Immunization Unable to retrieve immunization data due to connection failure with Immunization Registry. Please try again later.
--- NOTE | 2017-09-03 12:02 | RADIOLOGY REPORT PS360 ---
US PELVIS-TRANSVAGINAL ONLY HISTORY: 7 wks, bleeding ORDERING PHYSICIAN: Silverio Aguilar MD PATIENT AGE: 42 years COMPARISON: None FINDINGS: There is an intrauterine gestational sac present with a crown-rump length of 0.75 cm correlating to gestational age of 6 weeks 5 days. heart tones are not demonstrated. On 08/27/2017 the average gestational age of 6 weeks 2 days and heart tones were present a yolk sac is seen. Adnexa are unremarkable. No cul-de-sac fluid. IMPRESSION: There is a uterine gestational sac with pole measuring 6 weeks and 5 days. heart tones however are not identified. CANNOT confirm viability.
[2017-09-03 12:45] VITALS: BP 132/103
== END 2017-09-03 12:46 | disposition home or self-care (01) ==
LOC: ER 10:37
PROVIDERS: Emergency Medicine
DX: O02.1 Missed abortion (principal)